=== PATIENT | male | born 1980 | race Caucasian/White ===

== ENCOUNTER 2024-03-15 01:15 | Inpatient (IN) ==
--- OUTSIDE RECORDS SUMMARY | 2024-03-15 01:20 | External Medical Summary | Summary of Care ---
Author Name Unknown Organization [facility] Address [address] [address] Phone [phone] Care Team Providers Care Corporate Travel Counselor Name Role Phone Siva Anna MD Primary Care Provider [phone] Encounter Details Date Type Department Care Team (Late st Contact Info) Description 10/14/2023 Result Scan Unspecified Department <No scans attached> Allergies Active Allergy Reactions Criticality Noted Date Comments Amoxicillin Hives 09/21/2010 documented as of this encounter (statuses as of 10/17/2023) Medications Medication Sig Dispensed Refills Start Date End Date Status predniSONE (DELTASONE) 10 MG Tablet Take 5 tabs for 2 days, 4 tabs for 2 days, 3 tabs for 2 days, 2 tabs for 2 days 1 tab for 2 days 30 Tab 07/25/2019 Active Additional Information Patient not taking.Reported on 01/15/2023 Omeprazole 20 MG Oral Capsule Delayed Release (PriLOSEC)Indicatio ns:Gastroesophageal reflux disease with esophagitis without hemorrhage Take 1 Cap by mouth daily. 90 Cap 1 11/08/2020 Active Additional Information Patient not taking.Reported on 01/15/2023 buPROPion HCl ER (XL) 150 MG Oral Tablet Extended Release 24 Hour (Wellbutrin XL) Take by mouth 1 Tablet in the morning. 30 Tablet 5 08/24/2021 Active Additional Information Patient not taking.Reported on 01/15/2023 Allopurinol 100 MG Oral Tablet (Zyloprim) Take 1 Tablet by mouth in the morning. 30 Tablet 5 01/15/2023 Active documented as of this encounter (statuses as of 10/17/2023) Active Problems Problem Noted Date Diagnosed Date Gout 09/29/2013 Overview: uric acid 8.3 Overweight (BMI 25.0-29.9) 11/15/2012 Major depressive disorder 10/03/2010 Overview: ICD-10 update of inactive term Tobacco use disorder 04/23/2009 documented as of this encounter (statuses as of 10/17/2023) Immunizations Name Administration Dates Next Due PPD 10/25/2021,07/09/2018 TDAP (age 10 and older)(Boostrix) 07/18/2018 TDAP, Age 7 and older, IM (Adacel) 08/12/2007 documented as of this encounter Social History Tobacco Use Types Packs/Day Years Used Date Smoking Tobacco: Never Smokeless Tobacco: Current Chew Comments:chews occ Alcohol Use Standard Drinks/Week Comments No 0 (1 standard drink = 0.6 oz pur e alcohol) PHQ-2 Answer Date Recorded PHQ-2 Score 5 07/25/2019 Utilities Answer Date Recorded Do you have trouble paying y our heating, water, or electric bill? (Adult - for ages 18 years and over) Not on file 08/07/2023 Is your family able to pay t he heat, water, or electric bill? (Household - for ages 0-17 years) Not on file 08/07/2023 Does your family have access to good internet? (Household - for ages 0-17 years) Not on file 08/07/2023 Social Connections Answer Date Recorded How often do you feel lonely or isolated from those around you? (Adult - for ages 18 years and over) Not on file 08/07/2023 Sex and Gender Information Value Date Recorded Sex Assigned at Not on file Gender Identity Not on file Sexual Orientation Not on file Job Start Date Occupation Industry Not on file Not on file Not on file documented as of this encounter Plan of Treatment Health Maintenance Due Date Last Done Comments HIV Screening 1996 Hepatitis C Screening 11/15/1999 Hepatitis B Vaccine (1 of 3 - 19+ 3-dose series) 2000 Depression Monitoring 07/24/2020 07/25/2019 COVID-19 Vaccine ( - 2022-24 season) 2022 Influenza Vaccine (FLU shot) (#1) 2023 Diabetes Screening 01/15/2026 01/15/2023, 0 09/22/2020, 07/25/2019, Additional history exists Lipid Panel 01/16/2028 01/15/2023 DTap/Tdap Vaccines (3 - Td or Tdap) 07/18/2028 07/18/2018, 08/12/2007 HPV (Gardasil) Vaccine Aged Out No lo nger eligible based on patient's age to complete this topic MENINGOCOCCAL (MENACTRA/MENVEO) Aged Out No longer eligible based on patient's age to complete this topic Pneumococcal Vaccine: Pediatrics (0 to 5 Years) and At-Risk Patients (6 to 64 Years) Aged Out No longer eligible based on patient's age to complete this topic documented as of this encounter Medical Devices Not on filedocumented as of this encounter Procedures Procedure Name Priority Date/Time Associated Diagnosis Comments OUTSIDE LAB RESULTS 10/14/2023 documented in this encounter Results * OUTSIDE LAB RESULTS (10/14/2023) 10/14/2023 No Physician Data Unknown LABORATORY documented in this encounter Care Teams Corporate Travel Counselor Relationship Specialty Start Date End Date Siva Anna MD PCP - General Family Medicine 10/24/13 documented as of this encounter
[2024-03-15 02:10] LABS: Base Excess VBG 6.4 mEq/L; HCO3 VBG 31 mmol/L; Oxygen Saturation VBG 79.1 %; PCO2 VBG 41 mmHg (38-50); PO2 VBG 47 mmHg; pH VBG 7.48 (7.36-7.41)
[2024-03-15] MEDS: ALBUT/IPRATROP 3MG/0.5MG NEB 3 ML VIAL NEB STA (02:13)
[2024-03-15 02:17] LABS: Basophils # (auto) 0.07 K/uL (0.00-0.20); Basophils % (auto) 0.3 %; Eosinophils # (auto) 0.02 K/uL (0.00-0.50); Eosinophils % (auto) 0.1 %; Hematocrit (blood only) 40.9 % (42.0-52.0); Hemoglobin 14.7 g/dl (14.0-18.0); Immature Granulocytes # (auto) 0.42 K/uL (0.01-0.20); Lymphocytes # (auto) 1.18 K/uL (1.20-3.40); Lymphocytes % (auto) 5.5 %; Mean Corpuscular Hemoglobin 28.8 pg (25.0-34.0); Mean Corpuscular Hgb Conc 35.9 g/dL (32.0-36.0); Mean Corpuscular Volume 80.2 fL (80.0-100.0); Mean Platelet Volume 9.3 fL (9.4-12.4); Monocytes # (auto) 2.58 K/uL (0.11-0.59); Neutrophils # (auto) 17.26 K/uL (1.40-6.50); Neutrophils % (auto) 80.1 %; Platelet Count 269 K/uL (130-400); RDW Coefficient of Variation 12.6 % (11.5-14.5); RDW Standard Deviation 36.4 fL (36.4-46.3); White Blood Count 21.53 K/ul (4.8-10.8)
[2024-03-15 02:35] LABS: Albumin Globulin Ratio 0.9 (0.9-2); Albumin Level 3.5 gm/dl (3.4-5.0); BUN Creatinine Ratio 15.8 (10-20); Bilirubin,Total 1.1 mg/dl (0.2-1.0); Creatinine Clr Calc Pharmacy 145.3 ml/min; Globulin 3.8 gm/dl (2.5-4.0); Potassium 3.1 mmol/L (3.5-5.1); Total Protein 7.3 gm/dl (6.0-8.3)
[2024-03-15 03:02] LABS: Adenovirus PCR Not Detected (NotDetected); Bordetella parapertussis PCR Not Detected (NotDetected); Bordetella pertussis PCR Not Detected (NotDetected); Chlamydia pneumoniae PCR Not Detected (NotDetected); Coronavirus 229E PCR Not Detected (NotDetected); Coronavirus CoV-2 (COVID19)PCR Not Detected (NotDetected); Coronavirus HKU1 PCR Not Detected (NotDetected); Coronavirus NL63 PCR Not Detected (NotDetected); Coronavirus OC43PCR Not Detected (NotDetected); Human Metapneumovirus PCR Not Detected (NotDetected); Influenza A PCR Not Detected (NotDetected); Influenza B PCR Not Detected (NotDetected); Mycoplasma pneumoniae PCR Not Detected (NotDetected); Parainfluenza Virus 1 PCR Not Detected (NotDetected); Parainfluenza Virus 2 PCR Not Detected (NotDetected); Parainfluenza Virus 3 PCR Not Detected (NotDetected); Parainfluenza Virus 4 PCR Not Detected (NotDetected); Respiratory Syncytial VirusPCR Not Detected (NotDetected); Rhinovirus/Enterovirus PCR Not Detected (NotDetected)
[2024-03-15] MEDS: OPTIRAY 320 125ml IV ONE (03:26)
[2024-03-15] MEDS ORDERED: VANCOMYCIN CONSULT ACTIVE PRN (03:28)
--- NOTE | 2024-03-15 03:39 | XRay Report ---
EXAM: XR chest 2V PA/lateral CLINICAL HISTORY: PNA. TECHNIQUE: X-ray images of the chest were obtained in posteroanterior (PA) and lateral projections. COMPARISON: 03/12/2024 CT. FINDINGS: Pulmonary Parenchyma: Homogenous opacity is noted at the right lung zones and RT hemithorax rises to the right axilla with obliteration of ipsilateral costophrenic recess denoting right lung consolidation with marked pleural effusion. Haziness of the right upper and left lower lung zone. No evidence of left pleural effusion or pleural thickening. Heart and Mediastinum: Heart size and shape are normal. No mediastinal widening or masses. No hilar or mediastinal lymphadenopathy. Bony Thorax: The bony thorax appears intact without fractures or deformities. Soft Tissues: Soft tissues overlying the chest wall are unremarkable. IMPRESSION: Homogenous opacity at the right lung zones and RT hemithorax rising to the right axilla with obliteration of ipsilateral costophrenic recess denoting right lung consolidation with marked pleural effusion. Progressive course compared to the last study. Electronically signed by Aniya Little 03-15-2024 03:39 AM
[2024-03-15 03:48] LABS: Appearance Urine Clear (Clear); Bacteria Urine Automated None Seen (None Seen); Bilirubin Urine Negative (Negative); Blood Urine Negative (Negative); Cast Urine Automated 0-2 /lpf (0-2); Color Urine Yellow; Epithelial Cell Urine Auto 0-2 /hpf (0-2); Glucose Urine UA Negative (Negative); Ketones Urine Negative (Negative); Leukocyte Esterase Urine Negative (Negative); Nitrite Urine Negative (Negative); Protein Urine 1+ (Negative); RBC Urine Automated 0-2 /hpf (0-2); Specific Gravity Urine 1.006 (1.000-1.030); Urobilinogen Urine Negative (Negative); WBC Urine Automated 0-5 /hpf (0-5)
[2024-03-15] MEDS: ACETAMINOPHEN 1,000 MG/100 ML VIAL IV STA (03:51)
[2024-03-15] MEDS: POTASSIUM CHLORIDE / WTR 10 MEQ/100 ML PLCT IV ONE (03:54)
[2024-03-15 04:03] LABS: Magnesium 2.2 mg/dl (1.7-2.4)
[2024-03-15] MEDS: VANCOMYCIN HCL 2,000 MG in SODIUM CHLORIDE 0.9% 500 ML IV ONE (04:35)
--- NOTE | 2024-03-15 04:37 | History & Physical Report ---
Date of Service March 15, 2024 Assessment & Plan (1) Severe sepsis: Plan: Severe sepsis SIRS plus hypoxemia secondary to complicated bronchopneumonia Failed outpatient treatment Hyponatremia secondary to illness Hyperglycemia rule out DM Mood disorder, stable off maintenance medications PCU Supplemental O2 CS, Cefepime, Doxycycline Follow CT chest study result Pulmonology consult re: complicated pneumonia N.p.o. in anticipation of procedure Hyponatremia workup, careful correction of sodium Check hemoglobin A1c DVT prophylaxis per Lovenox subcu Full code Patient requesting updates providers. Ms. Alida Quarles, contact #[phone]. Total critical care time was 45 minutes. Text document was generated using MePlease voice recognition software. It may contain grammatical or spelling errors. Kindly contact undersigned for clarification of any documentation item in question. History of Present Illness Chief Complaint: Worsening cough, SOB Primary Care Provider: Munira Castro PA-C History obtained from patient, family, and records. Medical history significant for gout, mood disorder. 6 days ago, patient started feeling sick. Generalized weakness associated with dry cough symptoms which later progressed to junky yellow expectorate. Achy right-sided chest pain. Poor appetite. Not sure about sick contacts. Denies aspiration. Denies fluid retention. Patient consulted [facility] ER 4 days ago due to worsening symptoms. Patient prescribed Levaquin for right lower lobe pneumonia. Patient returned to [facility] ER the following day due to worsening symptoms. CT angio chest negative for PE. Bronchopneumonia with right moderate parapneumonic effusion and reactive mediastinal lymphadenopathy on imaging. Patient discharged home and instructed to complete Levaquin Rx. Patient not better despite compliance with antibiotic Rx. Cough productive of yellow-brown sputum. Patient brought to ER by for evaluation. O2 sats 88 on room air. Vancomycin and doxycycline administered at the ER. 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 Allergies Allergy/AdvReac Type Severity Reaction Status Date / Time amoxicillin Allergy Unknown RASH HIVES Unverified 09/12/13 06:10 Home Medications Medication Instructions Recorded Confirmed Type levofloxacin 750 mg tablet 750 mg PO .EVERY 24 HOURS 03/15/24 03/15/24 History Past Med/Surg History Problem List (Updated 03/15/24 @ 07:13 by Dyllan Driscoll MD) Severe sepsis Cervical stenosis of spinal canal (Acute 09/12/13) Medical History Family history of non-Hodgkin's lymphoma Surgical History No significant past surgical history Social History (Updated 03/15/24 @ 04:52 by Nate Rodriguez PA-C) Smoking Status: Never smoker Tobacco Type: Smokeless Tobacco (Dip or Chew) Preferred Language: Maltese Feels Safe at Home: Yes Review of Systems Review of Systems: As per HPI, all other systems reviewed and negative Physical Exam Physical Exam: GENERAL: Comfortable, minimal respiratory distress SKIN: Normal color, warm HEENT: [place] palpebral conjunctivae, no ptosis, dry buccal mucosa, nasal cannula in place NECK : Supple, no tenderness CHEST : Decreased breath sounds, occasional expiratory wheezes, no tenderness HEART : Tachycardic, no obvious murmurs ABDOMEN: Some distention, nontender EXTREMITIES : No LE swelling/tenderness, no other conspicuous deformities noted NEUROLOGIC : Coherent, no facial asymmetry, no other gross focality Results & Data Results & Data Vital Signs (Past 12 Hours) Vital Signs Temp Pulse Pulse Resp BP BP Pulse Ox 03/15/24 03:30 120 H 26 H 125/104 H 96 03/15/24 01:59 114 H 94 03/15/24 01:48 95 03/15/24 01:28 116 H 03/15/24 01:19 36.9 C 120 H 27 H 135/85 88 L O2 Del Method O2 Flow Rate 03/15/24 03:30 Nasal Cannula 4 03/15/24 01:59 Nasal Cannula 4 03/15/24 01:48 Nasal Cannula 4 03/15/24 01:28 03/15/24 01:19 Room Air Laboratory Results Laboratory Results WBC 21.53 K/ul (4.8-10.8) H 03/15/24 01:54 RBC 5.10 M/uL (4.70-6.10) 03/15/24 01:54 Hgb 14.7 g/dl (14.0-18.0) 03/15/24 01:54 Hct 40.9 % (42.0-52.0) L 03/15/24 01:54 MCV 80.2 fL (80.0-100.0) 03/15/24 01:54 MCH 28.8 pg (25.0-34.0) 03/15/24 01:54 MCHC 35.9 g/dL (32.0-36.0) 03/15/24 01:54 RDW Std Deviation 36.4 fL (36.4-46.3) 03/15/24 01:54 RDW Coeff of [place] 12.6 % (11.5-14.5) 03/15/24 01:54 Plt Count 269 K/uL (130-400) 03/15/24 01:54 MPV 9.3 fL (9.4-12.4) L 03/15/24 01:54 Immature Gran % (Auto) 2.0 % 03/15/24 01:54 Neut % (Auto) 80.1 % 03/15/24 01:54 Lymph % (Auto) 5.5 % 03/15/24 01:54 [place] % (Auto) 12.0 % 03/15/24 01:54 Eos % (Auto) 0.1 % 03/15/24 01:54 Baso % (Auto) 0.3 % 03/15/24 01:54 Neut # (Auto) 17.26 K/uL (1.40-6.50) H 03/15/24 01:54 Lymph # (Auto) 1.18 K/uL (1.20-3.40) L 03/15/24 01:54 [place] # (Auto) 2.58 K/uL (0.11-0.59) H 03/15/24 01:54 Eos # (Auto) 0.02 K/uL (0.00-0.50) 03/15/24 01:54 Baso # (Auto) 0.07 K/uL (0.00-0.20) 03/15/24 01:54 Immature Gran # (Auto) 0.42 K/uL (0.01-0.20) H 03/15/24 01:54 VBG pH 7.48 (7.36-7.41) H 03/15/24 01:54 VBG pCO2 41 mmHg (38-50) 03/15/24 01:54 VBG pO2 47 mmHg 03/15/24 01:54 VBG HCO3 31 mmol/L 03/15/24 01:54 VBG O2 Saturation 79.1 % 03/15/24 01:54 VBG Base Excess 6.4 mEq/L 03/15/24 01:54 Sodium 128 mmol/L (136-145) L 03/15/24 01:54 Potassium 3.1 mmol/L (3.5-5.1) L 03/15/24 01:54 Chloride 90 mmol/L (98-107) L 03/15/24 01:54 Carbon Dioxide 27 mmol/L (21-32) 03/15/24 01:54 Anion Gap 11 (3-11) 03/15/24 01:54 BUN 12 mg/dl (6-23) 03/15/24 01:54 Creatinine 0.76 mg/dl (0.6-1.4) 03/15/24 01:54 Est Cr Clr Drug Dosing 145.3 ml/min 03/15/24 01:54 eGFR 115.09 03/15/24 01:54 BUN/Creatinine Ratio 15.8 (10-20) 03/15/24 01:54 Glucose 126 mg/dl (70-99(Fasting)) H 03/15/24 01:54 Lactate 1.3 mmol/L (0.4-2.0) 03/15/24 01:54 Calcium 9.0 mg/dl (8.6-10.3) 03/15/24 01:54 Magnesium 2.2 mg/dl (1.7-2.4) 03/15/24 01:54 Total Bilirubin 1.1 mg/dl (0.2-1.0) H 03/15/24 01:54 AST 29 U/L (13-39) 03/15/24 01:54 ALT 34 U/L (7-52) 03/15/24 01:54 Alkaline Phosphatase 105 U/L (34-104) H 03/15/24 01:54 Troponin I High Sens 50.0 pg/ml (0-20) H* 03/15/24 01:54 Total Protein 7.3 gm/dl (6.0-8.3) 03/15/24 01:54 Albumin 3.5 gm/dl (3.4-5.0) 03/15/24 01:54 Globulin 3.8 gm/dl (2.5-4.0) 03/15/24 01:54 Albumin/Globulin Ratio 0.9 (0.9-2) 03/15/24 01:54 Procalcitonin 3.34 ng/ml (0-0.5) H 03/15/24 01:54 Urine Color Yellow 03/15/24 03:20 Urine Appearance Clear (Clear) 03/15/24 03:20 Urine pH 6.0 (4.5-7.5) 03/15/24 03:20 Ur Specific [place] 1.006 (1.000-1.030) 03/15/24 03:20 Urine Protein 1+ (Negative) H 03/15/24 03:20 Urine Glucose (UA) Negative (Negative) 03/15/24 03:20 Urine Ketones Negative (Negative) 03/15/24 03:20 Urine Blood Negative (Negative) 03/15/24 03:20 Urine Nitrite Negative (Negative) 03/15/24 03:20 Urine Bilirubin Negative (Negative) 03/15/24 03:20 Urine Urobilinogen Negative (Negative) 03/15/24 03:20 Ur Leukocyte Esterase Negative (Negative) 03/15/24 03:20 Urine WBC (Auto) 0-5 /hpf (0-5) 03/15/24 03:20 Urine RBC (Auto) 0-2 /hpf (0-2) 03/15/24 03:20 U Hyaline Cast (Auto) 0-2 /lpf (0-2) 03/15/24 03:20 U Epithel Cells (Auto) 0-2 /hpf (0-2) 03/15/24 03:20 Urine Bacteria (Auto) None Seen (None Seen) 03/15/24 03:20 Adenovirus (PCR) Not Detected (NotDetected) 03/15/24 01:54 B. pertussis DNA (PCR) Not Detected (NotDetected) 03/15/24 01:54 B.parapertussis DNA PCR Not Detected (NotDetected) 03/15/24 01:54 C. pneumoniae DNA (PCR) Not Detected (NotDetected) 03/15/24 01:54 Coronavirus OC43 (PCR) Not Detected (NotDetected) 03/15/24 01:54 Coronavirus HKU1 (PCR) Not Detected (NotDetected) 03/15/24 01:54 Coronavirus 229E (PCR) Not Detected (NotDetected) 03/15/24 01:54 SARS-CoV-2 (PCR) Not Detected (NotDetected) 03/15/24 01:54 Coronavirus NL63 (PCR) Not Detected (NotDetected) 03/15/24 01:54 Human Metapneumovir PCR Not Detected (NotDetected) 03/15/24 01:54 Influenza Type A (PCR) Not Detected (NotDetected) 03/15/24 01:54 Influenza Type B (PCR) Not Detected (NotDetected) 03/15/24 01:54 M. pneumoniae (PCR) Not Detected (NotDetected) 03/15/24 01:54 Parainfluenza 1 (PCR) Not Detected (NotDetected) 03/15/24 01:54 Parainfluenza 2 (PCR) Not Detected (NotDetected) 03/15/24 01:54 Parainfluenza 3 (PCR) Not Detected (NotDetected) 03/15/24 01:54 Parainfluenza 4 (PCR) Not Detected (NotDetected) 03/15/24 01:54 RSV (PCR) Not Detected (NotDetected) 03/15/24 01:54 Entero/Rhino (PCR) Not Detected (NotDetected) 03/15/24 01:54 Impressions Chest X-Ray 03/15/24 01:30 EXAM: XR chest 2V PA/lateral CLINICAL HISTORY: PNA. TECHNIQUE: X-ray images of the chest were obtained in posteroanterior (PA) and lateral projections. COMPARISON: 03/12/2024 CT. FINDINGS: Pulmonary Parenchyma: Homogenous opacity is noted at the right lung zones and RT hemithorax rises to the right axilla with obliteration of ipsilateral costophrenic recess denoting right lung consolidation with marked pleural effusion. Haziness of the right upper and left lower lung zone. No evidence of left pleural effusion or pleural thickening. Heart and Mediastinum: Heart size and shape are normal. No mediastinal widening or masses. No hilar or mediastinal lymphadenopathy. Bony Thorax: The bony thorax appears intact without fractures or deformities. Soft Tissues: Soft tissues overlying the chest wall are unremarkable. IMPRESSION: Homogenous opacity at the right lung zones and RT hemithorax rising to the right axilla with obliteration of ipsilateral costophrenic recess denoting right lung consolidation with marked pleural effusion. Progressive course compared to the last study. Electronically signed by Aniya Little 03-15-2024 03:39 AM Diagnostic Findings EKG as per my interpretation :Rate 120, sinus tachycardia, normal axis, incomplete RBBB, T wave abnormalities inferior leads
--- NOTE | 2024-03-15 04:38 | CT Scan Report ---
EXAM: CT angio chest PE protocol CLINICAL HISTORY: Shortness of breath, abnormal cxr. TECHNIQUE: CT angiography of the chest was performed with contrast with the following protocol: axial images with, reconstructed coronal and sagittal images. 118 cc's optiray 320 was administered using automated injection techniques. Bolus tracking was employed to optimize arterial phase imaging. One of these 3D techniques was utilized: Maximum Intensity Pixel (MIP), 3D Reconstructed Images, Volume Rendered Images, Surface Shaded Rendering. One of the following dose reduction techniques was utilized for this exam: Automated exposure control, adjustment of the mA and/or kV according to patient size, and use of iterative reconstruction. DLP: 962.11 mGy-cm, CTDI: 44.9 mGy. COMPARISON: CT angio dated 03/12/2024. FINDINGS: Right and left main pulmonary arteries as well as segmental branches appear of normal caliber without evidence of any filling defect. No evidence of gross pulmonary arterial thrombosis was identified. Right moderate to marked encysted pleural effusion shows internal air loculi associated with pleural thickening. Underlying right lung segmental and subsegmental consolidation collapse. Associated mild contralateral mediastinal shift. Mild left pleural effusion with underlying left lung subsegmental relaxation atelectasis. Left lung atelectatic bands and tiny nodular densities. Multiple enlarged mediastinal and bilateral hilar lymph nodes, reaching about 3 x 1.2 cm at the subcarinal region. No evidence of cardiomegaly. Minimal pericardial effusion. There is no definite mass lesion in the chest wall. No fractures, lytic, or blastic lesions of the visualized bony structures. Soft tissues are unremarkable. Upper abdomen shows Fatty liver. IMPRESSION: 1. No evidence of acute pulmonary arterial thromboembolic disease. 2. Right moderate to marked encysted pleural effusion currently shows internal air loculi associated with pleural thickening. Underlying right lung segmental and subsegmental consolidation collapse. Progressed. 3. Mild left pleural effusion with underlying left lung subsegmental relaxation atelectasis. Newly developed. 4. Multiple enlarged mediastinal and bilateral hilar lymph nodes. Progressed. Electronically signed by Aniya Little 03-15-2024 04:37 AM
[2024-03-15] MEDS: POTASSIUM CHLORIDE CRTAB 20 MEQ TABCR PO STA (04:41)
[2024-03-15] MEDS: methylPREDNISolone 125 MG/2 ML VIAL IV STA (04:41)
--- NOTE | 2024-03-15 04:56 | Emergency Department Note ---
History of Present Illness General Chief complaint: Respiratory Problems Stated complaint: PNEUMONIA,WEAK,LOW O2 Time Seen by Provider: 03/15/24 01:21 History of Present Illness Maximum Pain Intensity: 3 This is a 43-year-old male presenting to the emergency department for evaluation of worsening pneumonia. Patient has been seen twice in the past week at [facility] with similar complaints. He states that he had 2 CAT scans and was started on Levaquin. Patient is on day 4 of the Levaquin, and despite this feels weak and with difficulty breathing. He will intermittently run a fever. He is usually healthy without chronic medical disease, does not take any medication on a regular basis. He will chew tobacco, but is not a smoker. 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 No recent travel history. He does have difficulty with deep breathing. There is mild chest pain. Discomfort is rated a 3/10. Home Medications Medication Instructions Recorded Confirmed Type levofloxacin 750 mg tablet 750 mg PO .EVERY 24 HOURS 03/15/24 03/15/24 History Allergies Allergy/AdvReac Type Severity Reaction Status Date / Time amoxicillin Allergy Unknown RASH HIVES Unverified 09/12/13 06:10 Past Med/Surg History Problem List (Updated 03/15/24 @ 21:21 by Nate Rodriguez PA-C) Hypokalemia (Acute) Hyponatremia (Acute) Hypoxemia (Acute) Pneumonia (Acute) Parapneumonic effusion (Acute) Severe sepsis (Acute) Cervical stenosis of spinal canal (Acute 09/12/13) Medical History Family history of non-Hodgkin's lymphoma Surgical History No significant past surgical history Social History (Updated 03/15/24 @ 04:52 by Nate Rodriguez PA-C) Smoking Status: Never smoker Tobacco Type: Smokeless Tobacco (Dip or Chew) Second Hand Exposure: No; Do You Dip or Chew Tobacco: Yes; Hx Alcohol Use: Yes Alcohol type: beer Hx Substance Use: No Preferred Language: Turkish Communication Ability: Effective Machine Biller Required: No Beliefs That Will Affect Care: None Current Living Situation: Spouse Feels Safe at Home: Yes Assistive Devices: Glasses Review of Systems A total of 10 systems reviewed and were otherwise negative Physical Exam Vital Signs Vital Signs - 24 hr 03/15/24 01:19 03/15/24 01:28 03/15/24 01:48 Temperature 36.9 C Temperature Source Temporal Artery Scan Pulse Rate 120 H 116 H Pulse Rate [Apical] Respiratory Rate 27 H Respiratory Effort / Characteristics Non-Labored Spontaneous Respiratory Depth Normal Respiratory Pattern Blood Pressure 135/85 Blood Pressure [Right Arm] Blood Pressure Mean 101 Blood Pressure Mean [Right Arm] Blood Pressure Position [Right Arm] Pulse Oximetry 88 L 95 Oxygen Delivery Method Room Air Nasal Cannula Oxygen Flow Rate 4 Sepsis Recent Fever Within 48 Hours No Sepsis New/Unexplained Change in Mental Status N/A Sepsis Action Taken by Nursing No Action Required 03/15/24 01:59 03/15/24 03:30 Temperature Temperature Source Pulse Rate 114 H Pulse Rate [Apical] 120 H Respiratory Rate 26 H Respiratory Effort / Characteristics Non-Labored Spontaneous Respiratory Depth Normal Respiratory Pattern Regular Blood Pressure Blood Pressure [Right Arm] 125/104 H Blood Pressure Mean Blood Pressure Mean [Right Arm] 111 Blood Pressure Position [Right Arm] Sitting Pulse Oximetry 94 96 Oxygen Delivery Method Nasal Cannula Nasal Cannula Oxygen Flow Rate 4 4 Sepsis Recent Fever Within 48 Hours Sepsis New/Unexplained Change in Mental Status Sepsis Action Taken by Nursing VITALS: Vitals are noted on the nurse's note and reviewed by myself. Vital signs with tachycardia and tachypnea. He is hypoxic at 87%. GENERAL: Well-developed, well-nourished, white male, who is ill-appearing on examination. He is with some work of breathing. This did resolve quickly with 4 L nasal cannula. HEAD: Normocephalic atraumatic. EARS: External ear normal. External auditory canals clear, tympanic membranes pearly ordaz without erythema or effusion bilaterally. EYES: Pupils equal round and reactive to light and accommodation. Conjunctivae without injection, sclerae without icterus. Extraocular movements intact. NOSE: Patent, turbinates without inflammation or discharge. MOUTH: Mucous membranes moist. Tonsils are not enlarged. Pharynx without erythema, blood, or exudate. Uvula midline. Airway patent. NECK: Supple without nuchal rigidity. No lymphadenopathy. No thyromegaly. Cervical spine is nontender. HEART: Tachycardic rate with regular rhythm LUNGS: Minimal breath sounds along the right side. Faint crackles noted in the basilar left lungs. ABDOMEN: Positive normal bowel sounds x 4. Soft, nontender, without masses or organomegaly. No guarding or rebound tenderness. MUSCULOSKELETAL: No muscle atrophy, erythema, or edema noted. Full range of motion in all extremities. Course Administered Medications Acetaminophen (Acetaminophen 500 Mg Tab) 500 mg PO Q6H PRN PRN Reason: fever/pain Stop: 04/14/24 05:52 Last Admin: 03/15/24 16:01 Dose: 500 mg Documented By: ELTON Enoxaparin Sodium (Enoxaparin Inj 40 Mg/0.4 Ml Syr) 40 mg SQ QAM RICKY Stop: 04/14/24 08:59 Last Admin: 03/15/24 10:36 Dose: Not Given Documented By: KAMLESH Hydrocodone Bit/Homatropine Methylb (Hydrocodone/Homatropine Syrup 5mg/1.5mg 5ml Udp) 5 ml PO Q4H PRN PRN Reason: Cough Stop: 03/29/24 09:24 Last Admin: 03/15/24 18:19 Dose: 5 ml Documented By: Admin: 03/15/24 11:26 Dose: 5 ml Documented By: KAMLESH Hydroxyzine HCl (Hydroxyzine Hcl 10 Mg Tab) 10 mg PO QID PRN PRN Reason: Anxiety Stop: 04/14/24 05:52 Last Admin: 03/15/24 07:05 Dose: 10 mg Documented By: Piperacillin Sod/Tazobactam Sod (Zosyn) 4.5 gm in 100 mls @ 25 mls/hr IV Q8H RICKY; Protocol Stop: 03/20/24 13:59 Last Infusion: 03/15/24 18:21 Dose: Infused Documented By: Admin: 03/15/24 14:21 Dose: 25 mls/hr Documented By: KAMLESH Alteplase, Recombinant 10 mg/ (Syringe) 60 mls @ 0.0006 mls/min IPL Q12H RICKY; Protocol Stop: 03/18/24 08:59 Last Admin: 03/15/24 21:01 Dose: 0.0006 mls/min Documented By: TOMY Co-signed By: WALT Admin: 03/15/24 10:17 Dose: 0.0006 mls/min Documented By: KAMLESH Co-signed By: ELTON Dornase Rashid 5 ml/ Syringe 30 mls @ 0.0006 mls/min IPL Q12H RICKY; Protocol Stop: 03/18/24 08:59 Last Admin: 03/15/24 11:30 Dose: 0.0006 mls/min Documented By: KAMLESH Ketorolac Tromethamine (Ketorolac Tromethamine 15 Mg/Ml Vial) 15 mg IV Q6H PRN PRN Reason: Pain Stop: 03/17/24 08:06 Last Admin: 03/15/24 11:25 Dose: 15 mg Documented By: KAMLESH Discontinued Medications Albuterol (Albut/Ipratrop 3mg/0.5mg Neb 3 Ml Vial) 3 ml NEB NOW STA; Protocol Stop: 03/15/24 01:34 Last Admin: 03/15/24 02:13 Dose: 3 ml Documented By: Acetaminophen (Ofirmev) 1,000 mg in 100 mls @ 400 mls/hr IV NOW STA Stop: 03/15/24 03:42 Last Infusion: 03/15/24 04:24 Dose: Infused Documented By: Admin: 03/15/24 03:51 Dose: 400 mls/hr Documented By: Vancomycin HCl 2,000 mg/ (Sodium Chloride) 540 mls @ 200 mls/hr IV NOW ONE Stop: 03/15/24 06:09 Last Infusion: 03/15/24 08:31 Dose: Infused Documented By: Admin: 03/15/24 04:35 Dose: 200 mls/hr Documented By: JAE Potassium Chloride (K Jesse / Wtr) 10 meq in 100 mls @ 100 mls/hr IV ONE ONE Stop: 03/15/24 04:44 Last Infusion: 03/15/24 05:53 Dose: Infused Documented By: Admin: 03/15/24 03:54 Dose: 100 mls/hr Documented By: Doxycycline Hyclate 100 mg/ (Dextrose) 100 mls @ 50 mls/hr IV NOW STA Stop: 03/15/24 05:45 Last Infusion: 03/15/24 08:31 Dose: Infused Documented By: Admin: 03/15/24 05:57 Dose: 50 mls/hr Documented By: Potassium Chloride/Sodium Chloride (Normal Saline W/20 Meq Kcl) 20 meq in 1,000 mls @ 100 mls/hr IV .Q10H ONE Stop: 03/15/24 14:22 Last Infusion: 03/15/24 16:26 Dose: Infused Documented By: Admin: 03/15/24 06:04 Dose: 100 mls/hr Documented By: Cefepime HCl (Maxipime 2000mg) 2,000 mg in 20 mls @ 5 mls/min IV NOW STA; Protocol Stop: 03/15/24 05:14 Last Admin: 03/15/24 05:56 Dose: 5 mls/min Documented By: Piperacillin Sod/Tazobactam Sod (Zosyn) 4.5 gm in 100 mls @ 200 mls/hr IV ONE ONE; Protocol Stop: 03/15/24 09:14 Last Infusion: 03/15/24 12:27 Dose: Infused Documented By: Admin: 03/15/24 10:53 Dose: 200 mls/hr Documented By: KAMLESH Ioversol (Optiray 320 125ml) 118 ml IV ONCE ONE Stop: 03/15/24 03:27 Last Admin: 03/15/24 03:26 Dose: 118 ml Documented By: LIAM Ipratropium [place] (Ipratropium [place] Neb Soln 0.02% 0.5mg/2.5ml Vial) 0.5 mg [facility]H [facility] Stop: 04/14/24 06:59 Last Admin: 03/15/24 12:17 Dose: Not Given Documented By: Admin: 03/15/24 07:23 Dose: Not Given Documented By: PATI Levalbuterol HCl (Levalbuterol 1.25 Mg/3 Ml Neb) 1.25 mg NEB QIDR [facility] Stop: 04/14/24 06:59 Last Admin: 03/15/24 12:17 Dose: Not Given Documented By: Admin: 03/15/24 07:23 Dose: Not Given Documented By: PATI Methylprednisolone (Methylprednisolone 125 Mg/2 Ml Vial) 40 mg IV NOW STA Stop: 03/15/24 04:34 Last Admin: 03/15/24 04:41 Dose: 40 mg Documented By: JAE Potassium Chloride (Potassium Chloride Crtab 20 Meq Tabcr) 40 meq PO NOW STA Stop: 03/15/24 04:25 Last Admin: 03/15/24 04:41 Dose: 40 meq Documented By: JAE Potassium Chloride (Potassium Chloride Crtab 20 Meq Tabcr) 40 meq PO ONE ONE Stop: 03/15/24 06:31 Last Admin: 03/15/24 06:41 Dose: 40 meq Documented By: Critical Care Time I have personally spent greater than 30 minutes of critical care time in the direct management of this patient. This includes bedside care, interpretation of diagnostic studies, and testing, discussion with consultants, patient, and family members, and other required patient management activities. This 30 minutes is in excess of all separately billable procedures. Medical Decision Making Differential Diagnosis Differential diagnosis includes, but is not limited to: Myocardial infarction, dysrhythmia, pericarditis, pneumothorax, aortic aneurysm/dissection, DVT/PE, anxiety, GERD, PUD, electrolyte imbalance, thyroid disorder, pneumonia, bronchitis, pancreatitis, and others Laboratory Data 03/15/24 01:54 03/15/24 08:27 Lab Results 03/15/24 03/15/24 Range/Units 01:54 03:20 WBC 21.53 H (4.8-10.8) K/ul RBC 5.10 (4.70-6.10) M/uL Hgb 14.7 (14.0-18.0) g/dl Hct 40.9 L (42.0-52.0) % MCV 80.2 (80.0-100.0) fL MCH 28.8 (25.0-34.0) pg MCHC 35.9 (32.0-36.0) g/dL RDW Std Deviation 36.4 (36.4-46.3) fL RDW Coeff of [place] 12.6 (11.5-14.5) % Plt Count 269 (130-400) K/uL MPV 9.3 L (9.4-12.4) fL Immature Gran % (Auto) 2.0 % Neut % (Auto) 80.1 % Lymph % (Auto) 5.5 % [place] % (Auto) 12.0 % Eos % (Auto) 0.1 % Baso % (Auto) 0.3 % Neut # (Auto) 17.26 H (1.40-6.50) K/uL Lymph # (Auto) 1.18 L (1.20-3.40) K/uL [place] # (Auto) 2.58 H (0.11-0.59) K/uL Eos # (Auto) 0.02 (0.00-0.50) K/uL Baso # (Auto) 0.07 (0.00-0.20) K/uL Immature Gran # (Auto) 0.42 H (0.01-0.20) K/uL PT 11.8 (9.0-12.0) Seconds INR 1.1 (0.9-1.1) VBG pH 7.48 H (7.36-7.41) VBG pCO2 41 (38-50) mmHg VBG pO2 47 mmHg VBG HCO3 31 mmol/L VBG O2 Saturation 79.1 % VBG Base Excess 6.4 mEq/L Sodium 128 L (136-145) mmol/L Potassium 3.1 L (3.5-5.1) mmol/L Chloride 90 L (98-107) mmol/L Carbon Dioxide 27 (21-32) mmol/L Anion Gap 11 (3-11) BUN 12 (6-23) mg/dl Creatinine 0.76 (0.6-1.4) mg/dl Est Cr Clr Drug Dosing 145.3 ml/min eGFR 115.09 BUN/Creatinine Ratio 15.8 (10-20) Glucose 126 H (70-99(Fasting)) mg/dl Estimat Average Glucose 105 mg/dl Hemoglobin A1c 5.3 (4.5-5.6) % Osmolality 270 L (280-300) mOsm/kg Lactate 1.3 (0.4-2.0) mmol/L Calcium 9.0 (8.6-10.3) mg/dl Magnesium 2.2 (1.7-2.4) mg/dl Total Bilirubin 1.1 H (0.2-1.0) mg/dl AST 29 (13-39) U/L ALT 34 (7-52) U/L Alkaline Phosphatase 105 H (34-104) U/L Troponin I High Sens 50.0 H* (0-20) pg/ml Total Protein 7.3 (6.0-8.3) gm/dl Albumin 3.5 (3.4-5.0) gm/dl Globulin 3.8 (2.5-4.0) gm/dl Albumin/Globulin Ratio 0.9 (0.9-2) Procalcitonin 3.34 H (0-0.5) ng/ml TSH 3.231 (0.300-4.500) uIu/ml Urine Color Yellow Urine Appearance Clear (Clear) Urine pH 6.0 (4.5-7.5) Ur Specific [place] 1.006 (1.000-1.030) Urine Protein 1+ H (Negative) Urine Glucose (UA) Negative (Negative) Urine Ketones Negative (Negative) Urine Blood Negative (Negative) Urine Nitrite Negative (Negative) Urine Bilirubin Negative (Negative) Urine Urobilinogen Negative (Negative) Ur Leukocyte Esterase Negative (Negative) Urine WBC (Auto) 0-5 (0-5) /hpf Urine RBC (Auto) 0-2 (0-2) /hpf U Hyaline Cast (Auto) 0-2 (0-2) /lpf U Epithel Cells (Auto) 0-2 (0-2) /hpf Urine Bacteria (Auto) None Seen (None Seen) Urine Osmolality 180 L (500-800) mOsm/kg Ur Random Sodium < 10 mmol/L Adenovirus (PCR) Not Detected (NotDetected) B. pertussis DNA (PCR) Not Detected (NotDetected) B.parapertussis DNA PCR Not Detected (NotDetected) C. pneumoniae DNA (PCR) Not Detected (NotDetected) Coronavirus OC43 (PCR) Not Detected (NotDetected) Coronavirus HKU1 (PCR) Not Detected (NotDetected) Coronavirus 229E (PCR) Not Detected (NotDetected) SARS-CoV-2 (PCR) Not Detected (NotDetected) Coronavirus NL63 (PCR) Not Detected (NotDetected) Human Metapneumovir PCR Not Detected (NotDetected) Influenza Type A (PCR) Not Detected (NotDetected) Influenza Type B (PCR) Not Detected (NotDetected) M. pneumoniae (PCR) Not Detected (NotDetected) Parainfluenza 1 (PCR) Not Detected (NotDetected) Parainfluenza 2 (PCR) Not Detected (NotDetected) Parainfluenza 3 (PCR) Not Detected (NotDetected) Parainfluenza 4 (PCR) Not Detected (NotDetected) RSV (PCR) Not Detected (NotDetected) Entero/Rhino (PCR) Not Detected (NotDetected) Imaging Data Radiologist's Impression: Chest X-Ray 03/15/24 01:30 EXAM: XR chest 2V PA/lateral CLINICAL HISTORY: PNA. TECHNIQUE: X-ray images of the chest were obtained in posteroanterior (PA) and lateral projections. COMPARISON: 03/12/2024 CT. FINDINGS: Pulmonary Parenchyma: Homogenous opacity is noted at the right lung zones and RT hemithorax rises to the right axilla with obliteration of ipsilateral costophrenic recess denoting right lung consolidation with marked pleural effusion. Haziness of the right upper and left lower lung zone. No evidence of left pleural effusion or pleural thickening. Heart and Mediastinum: Heart size and shape are normal. No mediastinal widening or masses. No hilar or mediastinal lymphadenopathy. Bony Thorax: The bony thorax appears intact without fractures or deformities. Soft Tissues: Soft tissues overlying the chest wall are unremarkable. IMPRESSION: Homogenous opacity at the right lung zones and RT hemithorax rising to the right axilla with obliteration of ipsilateral costophrenic recess denoting right lung consolidation with marked pleural effusion. Progressive course compared to the last study. Electronically signed by Aniya Little 03-15-2024 03:39 AM Chest CTA 03/15/24 02:09 EXAM: CT angio chest PE protocol CLINICAL HISTORY: Shortness of breath, abnormal cxr. TECHNIQUE: CT angiography of the chest was performed with contrast with the following protocol: axial images with, reconstructed coronal and sagittal images. 118 cc's optiray 320 was administered using automated injection techniques. Bolus tracking was employed to optimize arterial phase imaging. One of these 3D techniques was utilized: Maximum Intensity Pixel (MIP), 3D Reconstructed Images, Volume Rendered Images, Surface Shaded Rendering. One of the following dose reduction techniques was utilized for this exam: Automated exposure control, adjustment of the mA and/or kV according to patient size, and use of iterative reconstruction. DLP: 962.11 mGy-cm, CTDI: 44.9 mGy. COMPARISON: CT angio dated 03/12/2024. FINDINGS: Right and left main pulmonary arteries as well as segmental branches appear of normal caliber without evidence of any filling defect. No evidence of gross pulmonary arterial thrombosis was identified. Right moderate to marked encysted pleural effusion shows internal air loculi associated with pleural thickening. Underlying right lung segmental and subsegmental consolidation collapse. Associated mild contralateral mediastinal shift. Mild left pleural effusion with underlying left lung subsegmental relaxation atelectasis. Left lung atelectatic bands and tiny nodular densities. Multiple enlarged mediastinal and bilateral hilar lymph nodes, reaching about 3 x 1.2 cm at the subcarinal region. No evidence of cardiomegaly. Minimal pericardial effusion. There is no definite mass lesion in the chest wall. No fractures, lytic, or blastic lesions of the visualized bony structures. Soft tissues are unremarkable. Upper abdomen shows Fatty liver. IMPRESSION: 1. No evidence of acute pulmonary arterial thromboembolic disease. 2. Right moderate to marked encysted pleural effusion currently shows internal air loculi associated with pleural thickening. Underlying right lung segmental and subsegmental consolidation collapse. Progressed. 3. Mild left pleural effusion with underlying left lung subsegmental relaxation atelectasis. Newly developed. 4. Multiple enlarged mediastinal and bilateral hilar lymph nodes. Progressed. Electronically signed by Aniya Little 03-15-2024 04:37 AM MDM Narrative Physical exam and history were performed. Nursing notes, EMR, and Medication List were personally reviewed. No social concerns were identified as barriers to patients care. Patient appears to have known pneumonia diagnosed at another ER. Patient appears very ill on arrival to this department and was seen immediately on arrival in room C10. 2 IVs were established. Blood cultures and lactic were gathered. Chest x-ray was performed. Blood work was obtained. Case was discussed with my attending, Dr. Garrison, who remained involved in care decision making. Patient's blood work is as above and was reviewed. He does have an elevated white blood cell count of 21,000. He does not have significant anemia. VBG shows that his pH is slightly elevated at 7.48, however his pCO2 is normal. He is hyponatremic at 128 and hypokalemic at 3.1. He was given potassium through his IV. BUN and creatinine are normal. Glucose 126. Lactic is negative with blood culture pending. Sputum culture was also gathered. Troponin is elevated at 50. EKG remains nonischemic. Procalcitonin is elevated at 3.3. Urine without evidence of infection. BioFire negative. Chest x-ray was performed and reviewed by myself, and the patient has a large opacity on the right side. Because of this the patient was sent to CT scan. CT scan was performed and reviewed by myself and radiology. CT scan does show a large loculated pleural effusion. After discussion with my attending, patient was started on IV vancomycin and IV doxycycline. He was given IV Tylenol here in the ER. Overall the patient does not appear well for discharge home. Case was discussed with the on-call hospitalist team, who agreed to evaluate the patient here in the ER. Please see their dictation for further patient course, plan, and disposition. The chart was completed utilizing [employer] Speech Voice Recognition Software. Grammatical errors, random word insertions, pronoun errors, and incomplete sentences are an occasional consequence of this system due to software limitations, ambient noise, and hardware issues. Any formal questions or concerns about the content, text, or information contained within the body of this dictation should be directly addressed to the provider for clarification. Impression & Plan Pneumonia, Parapneumonic effusion, Severe sepsis, Hypoxemia, Hyponatremia, Hypokalemia Discharge Plan Visit Data Chief Complaint: Respiratory Problems Stated Complaint: PNEUMONIA,WEAK,LOW O2 ED Provider: Jazmin Garrison ED Midlevel Provider: Nate Rodriguez Discharge Problem: Pneumonia, Parapneumonic effusion, Severe sepsis, Hypoxemia, Hyponatremia, Hypokalemia Patient Disposition: Admitted As Inpatient Discharge Instructions Interventions: ED Discharge Assessment Last Done: 03/15/24 08:56
[2024-03-15 05:04] LABS: Thyroid Stimulating Hormone 3.231 uIu/ml (0.300-4.500)
[2024-03-15] MEDS ORDERED: PROMETHAZINE 6.25 MG/50.25 ML BAG IV PRN (05:53)
[2024-03-15] MEDS: CEFEPIME 2000MG 2,000 MG/20 ML SYR IV STA (05:56)
[2024-03-15] MEDS: DOXYCYCLINE HYCLATE 100 MG in DEXTROSE 5% MINI-B 100 ML IV STA (05:57)
[2024-03-15] MEDS: NSS + 20MEQ KCL 20 MEQ/1,000 ML BAG IV ONE (06:04)
[2024-03-15] MEDS: POTASSIUM CHLORIDE CRTAB 20 MEQ TABCR PO ONE (06:41)
[2024-03-15] MEDS: hydrOXYzine HCl 10 MG TAB PO PRN (07:05)
[2024-03-15] MEDS: IPRATROPIUM BROMIDE NEB SOLN 0.02% 0.5MG/2.5ML VIAL INH SCH (07:23)
[2024-03-15] MEDS: LEVALBUTEROL 1.25 MG/3 ML NEB NEB SCH (07:23)
[2024-03-15 07:26] LABS: Estimated Average Glucose 105 mg/dl; Hemoglobin A1C 5.3 % (4.5-5.6)
--- NOTE | 2024-03-15 08:03 | Pulmonary Consultation ---
Date of Consultation March 15, 2024 Assessment & Plan (1) Parapneumonic effusion: (2) Pneumonia: (3) Hypoxemia: (4) Hyponatremia: (5) Hypokalemia: Plan Impression: 43-year-old previously healthy male admitted with pneumonia and parapneumonic effusion on the right. Recommendations: 1. Images were reviewed. Discussed with patient. Recommend urgent drainage. We discussed referral for surgical decortication and washout however the patient would like to remain local if possible. Will proceed with pigtail catheter placement and initiate mist 2 protocol. Fluid will be sent for LDH, glucose, pH, cell count differential, Gram stain and culture, and cytology. Daily chest x-ray and follow chest tube output. If he fails, may need to consider thoracic surgery involvement. Anticipate 3 to 4 days hospitalization 2. Will need to cover anaerobes. Discontinue cefepime and doxycycline. Given his remote history of rash associated with penicillins I think he can be rechallenged. Will give Zosyn as he is in a monitored setting. This can likely be de-escalated to Unasyn or Augmentin depending on culture data. Anticipate 10 to 14 days of therapy. 3. Electrolyte replacement per primary admitting service. The above recommendations and plan were extensively discussed with the patient at the bedside. Questions were answered to the best my ability. He expressed understanding and is in agreement with the plan as outlined History of Present Illness History of Present Illness Asked by hospitalist to assist in evaluation management of this patient with parapneumonic effusion/empyema. History is obtained from discussion with the patient as well as review of electronic medical record. 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 He has been seen in the [facility] emergency department on several occasions over the last week with fevers, chills, and sweats. He was apparently prescribed levofloxacin. We do not have imaging available to review but he was told he had pneumonia. He failed to improve after several visits to their ER and this prompted visit to our ER today where chest x-ray demonstrated opacification of two thirds of the right hemithorax. A CT scan was performed which revealed gas within the pleural space as well as a loculated probable parapneumonic effusion with some shift. He received antibiotics in the form of vancomycin, dox ycycline, and cefepime and was admitted to the hospital service. Pulmonary was consulted for additional management. The patient reports fevers, chills, and sweats. He has not had prior pneumonia. He reports that he had amoxicillin as a child which resulted in a rash but he is unclear on the details. He is unclear if he has had penicillins after that. He has no pets at home. No travel history. No other pertinent occupational or exposure history. Allergies Allergy/AdvReac Type Severity Reaction Status Date / Time amoxicillin Allergy Unknown RASH HIVES Unverified 09/12/13 06:10 Home Medications Medication Instructions Recorded Confirmed Type levofloxacin 750 mg tablet 750 mg PO .EVERY 24 HOURS 03/15/24 03/15/24 History Patient History Medical History Family history of non-Hodgkin's lymphoma Surgical History No significant past surgical history Social History (Updated 03/15/24 @ 04:52 by Nate Rodriguez PA-C) Smoking Status: Never smoker Tobacco Type: Smokeless Tobacco (Dip or Chew) Preferred Language: Uzbek Feels Safe at Home: Yes Review of Systems Review of Systems: Please refer to admission H&P. No additions or deletions Physical Exam Constitutional: + ill appearing Neck: trachea midline, no thyromegaly Respiratory: no respiratory distress, no labored breathing, no cough and not tachypneic Auscultation: + diminished lung sounds Diminished breath sounds on the right skilled nursing up with dullness to percussion. Cardiovascular: RRR, no murmur, no edema Gastrointestinal (Abdomen): normal bowel sounds, soft, nontender, no hepatosplenomegaly Musculoskeletal: Extremities: extremities normal to inspection Skin: no rashes, warm and dry Neurologic: Nonfocal exam Lymphatic: no cervical lymphadenopathy Results & Data Results & Data Vital Signs (Past 12 Hours) Vital Signs Temp Pulse Pulse Resp BP BP Pulse Ox 03/15/24 07:36 94 H 22 136/88 94 03/15/24 07:09 36.8 C 03/15/24 07:06 96 H 19 94 03/15/24 06:45 96 H 20 127/92 94 03/15/24 06:30 124/96 03/15/24 06:30 97 H 25 H 94 03/15/24 06:12 98 H 31 H 96 03/15/24 06:06 36.5 C 03/15/24 06:00 126/81 03/15/24 05:57 98 H 26 H 96 03/15/24 05:55 96 H 03/15/24 05:45 130/78 03/15/24 05:42 101 H 27 H 96 03/15/24 05:33 100 H 32 H 96 03/15/24 05:30 121/79 03/15/24 05:06 99 H 34 H 95 03/15/24 05:00 118/77 03/15/24 04:45 108 H 32 H 94 03/15/24 04:45 123/74 03/15/24 03:30 120 H 26 H 125/104 H 96 03/15/24 01:59 114 H 94 03/15/24 01:48 95 03/15/24 01:28 116 H 03/15/24 01:19 36.9 C 120 H 27 H 135/85 88 L O2 Del Method O2 Flow Rate 03/15/24 07:36 Nasal Cannula 4 03/15/24 07:09 03/15/24 07:06 03/15/24 06:45 Nasal Cannula 4 03/15/24 06:30 03/15/24 06:30 Nasal Cannula 4 03/15/24 06:12 Nasal Cannula 4 03/15/24 06:06 03/15/24 06:00 03/15/24 05:57 Nasal Cannula 4 03/15/24 05:55 03/15/24 05:45 03/15/24 05:42 Nasal Cannula 4 03/15/24 05:33 Nasal Cannula 4 03/15/24 05:30 03/15/24 05:06 Nasal Cannula 4 03/15/24 05:00 03/15/24 04:45 Nasal Cannula 4 03/15/24 04:45 03/15/24 03:30 Nasal Cannula 4 03/15/24 01:59 Nasal Cannula 4 03/15/24 01:48 Nasal Cannula 4 03/15/24 01:28 03/15/24 01:19 Room Air Critical Care Results & Data Vital Signs (Past 12 Hours) Vital Signs Temp Pulse Pulse Resp BP BP Pulse Ox 03/15/24 07:36 94 H 22 136/88 94 03/15/24 07:09 36.8 C 03/15/24 07:06 96 H 19 94 03/15/24 06:45 96 H 20 127/92 94 03/15/24 06:30 124/96 03/15/24 06:30 97 H 25 H 94 03/15/24 06:12 98 H 31 H 96 03/15/24 06:06 36.5 C 03/15/24 06:00 126/81 03/15/24 05:57 98 H 26 H 96 03/15/24 05:55 96 H 03/15/24 05:45 130/78 03/15/24 05:42 101 H 27 H 96 03/15/24 05:33 100 H 32 H 96 03/15/24 05:30 121/79 03/15/24 05:06 99 H 34 H 95 03/15/24 05:00 118/77 03/15/24 04:45 108 H 32 H 94 03/15/24 04:45 123/74 03/15/24 03:30 120 H 26 H 125/104 H 96 03/15/24 01:59 114 H 94 03/15/24 01:48 95 03/15/24 01:28 116 H 03/15/24 01:19 36.9 C 120 H 27 H 135/85 88 L O2 Del Method O2 Flow Rate 03/15/24 07:36 Nasal Cannula 4 03/15/24 07:09 03/15/24 07:06 03/15/24 06:45 Nasal Cannula 4 03/15/24 06:30 03/15/24 06:30 Nasal Cannula 4 03/15/24 06:12 Nasal Cannula 4 03/15/24 06:06 03/15/24 06:00 03/15/24 05:57 Nasal Cannula 4 03/15/24 05:55 03/15/24 05:45 03/15/24 05:42 Nasal Cannula 4 03/15/24 05:33 Nasal Cannula 03/15/24 05:30 03/15/24 05:06 Nasal Cannula 4 03/15/24 05:00 03/15/24 04:45 Nasal Cannula 4 03/15/24 04:45 03/15/24 03:30 Nasal Cannula 4 03/15/24 01:59 Nasal Cannula 4 03/15/24 01:48 Nasal Cannula 4 03/15/24 01:28 03/15/24 01:19 Room Air Lab & Micro Results (Past 24 Hours) RBC 5.10 M/uL (4.70-6.10) 03/15/24 WBC 21.53 K/ul (4.8-10.8) H 03/15/24 Hgb 14.7 g/dl (14.0-18.0) 03/15/24 Hct 40.9 % (42.0-52.0) L 03/15/24 MCV 80.2 fL (80.0-100.0) 03/15/24 MCH 28.8 pg (25.0-34.0) 03/15/24 MCHC 35.9 g/dL (32.0-36.0) 03/15/24 RDW Standard Deviation 36.4 fL (36.4-46.3) 03/15/24 RDW Coefficient of Variation 12.6 % (11.5-14.5) 03/15/24 Plt Count 269 K/uL (130-400) 03/15/24 MPV 9.3 fL (9.4-12.4) L 03/15/24 Neutrophils (%) (Auto) 80.1 % 03/15/24 Lymphocytes (%) (Auto) 5.5 % 03/15/24 Monocytes # (Auto) 2.58 K/uL (0.11-0.59) H 03/15/24 Eosinophils # (Auto) 0.02 K/uL (0.00-0.50) 03/15/24 Immature Granulocyte % (Auto) 2.0 % 03/15/24 Neutrophils # (Auto) 17.26 K/uL (1.40-6.50) H 03/15/24 Lymphocytes # (Auto) 1.18 K/uL (1.20-3.40) L 03/15/24 Monocytes # (Auto) 2.58 K/uL (0.11-0.59) H 03/15/24 Eosinophils # (Auto) 0.02 K/uL (0.00-0.50) 03/15/24 Basophils # (Auto) 0.07 K/uL (0.00-0.20) 03/15/24 Immature Granulocyte # (Auto) 0.42 K/uL (0.01-0.20) H 03/15 Na 128 mmol/L (136-145) L 03/15/24 K 3.1 mmol/L (3.5-5.1) L 03/15/24 Cl 90 mmol/L (98-107) L 03/15/24 CO2 27 mmol/L (21-32) 03/15/24 Anion Gap 11 (3-11) 03/15/24 BUN 12 mg/dl (6-23) 03/15/24 Creatinine 0.76 mg/dl (0.6-1.4) 03/15/24 BUN/Creatinine Ratio 15.8 (10-20) 03/15/24 Glu 126 mg/dl (70-99(Fasting)) H 03/15/24 Ca 9.0 mg/dl (8.6-10.3) 03/15/24 Total Bilirubin 1.1 mg/dl (0.2-1.0) H 03/15/24 AST 29 U/L (13-39) 03/15/24 ALT 34 U/L (7-52) 03/15/24 Alkaline Phosphatase 105 U/L (34-104) H 03/15/24 TP 7.3 gm/dl (6.0-8.3) 03/15/24 Albumin 3.5 gm/dl (3.4-5.0) 03/15/24 Globulin 3.8 gm/dl (2.5-4.0) 03/15/24 Albumin/Globulin Ratio 0.9 (0.9-2) 03/15/24 Mg 2.2 mg/dl (1.7-2.4) 03/15/24 01:54 Calcium Level 9.0 mg/dl (8.6-10.3) 03/15/24 01:54 Venous Blood pH 7.48 (7.36-7.41) H 03/15/24 01:54 Venous Blood Partial Pressure CO2 41 mmHg (38-50) 03/15/24 01:5 4 Venous Blood Partial Pressure O2 47 mmHg 03/15/24 01:54 Venous Blood HCO3 31 mmol/L 03/15/24 01:54 Venous Blood Base Excess 6.4 mEq/L 03/15/24 01:54 Venous Blood Oxygen Saturation 79.1 % 03/15/24 01:54 Diagnostic Findings (Past 24 Hours) Chest X-Ray 03/15/24 01:30 EXAM: XR chest 2V PA/lateral CLINICAL HISTORY: PNA. TECHNIQUE: X-ray images of the chest were obtained in posteroanterior (PA) and lateral projections. COMPARISON: 03/12/2024 CT. FINDINGS: Pulmonary Parenchyma: Homogenous opacity is noted at the right lung zones and RT hemithorax rises to the right axilla with obliteration of ipsilateral costophrenic recess denoting right lung consolidation with marked pleural effusion. Haziness of the right upper and left lower lung zone. No evidence of left pleural effusion or pleural thickening. Heart and Mediastinum: Heart size and shape are normal. No mediastinal widening or masses. No hilar or mediastinal lymphadenopathy. Bony Thorax: The bony thorax appears intact without fractures or deformities. Soft Tissues: Soft tissues overlying the chest wall are unremarkable. IMPRESSION: Homogenous opacity at the right lung zones and RT hemithorax rising to the right axilla with obliteration of ipsilateral costophrenic recess denoting right lung consolidation with marked pleural effusion. Progressive course compared to the last study. Electronically signed by Aniya Little 03-15-2024 03:39 AM Chest CTA 03/15/24 02:09 EXAM: CT angio chest PE protocol CLINICAL HISTORY: Shortness of breath, abnormal cxr. TECHNIQUE: CT angiography of the chest was performed with contrast with the following protocol: axial images with, reconstructed coronal and sagittal images. 118 cc's optiray 320 was administered using automated injection techniques. Bolus tracking was employed to optimize arterial phase imaging. One of these 3D techniques was utilized: Maximum Intensity Pixel (MIP), 3D Reconstructed Images, Volume Rendered Images, Surface Shaded Rendering. One of the following dose reduction techniques was utilized for this exam: Automated exposure control, adjustment of the mA and/or kV according to patient size, and use of iterative reconstruction. DLP: 962.11 mGy-cm, CTDI: 44.9 mGy. COMPARISON: CT angio dated 03/12/2024. FINDINGS: Right and left main pulmonary arteries as well as segmental branches appear of normal caliber without evidence of any filling defect. No evidence of gross pulmonary arterial thrombosis was identified. Right moderate to marked encysted pleural effusion shows internal air loculi associated with pleural thickening. Underlying right lung segmental and subsegmental consolidation collapse. Associated mild contralateral mediastinal shift. Mild left pleural effusion with underlying left lung subsegmental relaxation atelectasis. Left lung atelectatic bands and tiny nodular densities. Multiple enlarged mediastinal and bilateral hilar lymph nodes, reaching about 3 x 1.2 cm at the subcarinal region. No evidence of cardiomegaly. Minimal pericardial effusion. There is no definite mass lesion in the chest wall. No fractures, lytic, or blastic lesions of the visualized bony structures. Soft tissues are unremarkable. Upper abdomen shows Fatty liver. IMPRESSION: 1. No evidence of acute pulmonary arterial thromboembolic disease. 2. Right moderate to marked encysted pleural effusion currently shows internal air loculi associated with pleural thickening. Underlying right lung segmental and subsegmental consolidation collapse. Progressed. 3. Mild left pleural effusion with underlying left lung subsegmental relaxation atelectasis. Newly developed. 4. Multiple enlarged mediastinal and bilateral hilar lymph nodes. Progressed. Electronically signed by Aniya Little 03-15-2024 04:37 AM I & O Totals 24 Hours 03/14/24 03/15/24 03/16/24 06:59 06:59 06:59 Intake Total 200 / 200 Balance 200 / 200 Cumulative 03/15/24 01:15 thru 03/15/24 05:53 Intake Total 200 Balance 200 RT Ventilator Mngmt (Last Documented) Ventilator Ordered Settings Respiratory Rate 22 03/15/24 07:36 Ventilator - PT Measurements Respiratory Rate 22 PG Care Time/CCT Total # of Minutes Spent Total Time Spent with Patient: Total time spent is greater than 50% in coordination of care (as documented) at patient's floor/unit and/or counseling patient: Coding Level of Care Code 93114 IN/OBS CONSULT LVL 4,60M Diagnoses Parapneumonic effusion J18.9; J91.8 Pneumonia J18.9 Hypoxemia R09.02 Hyponatremia E87.1 Hypokalemia E87.6
--- NOTE | 2024-03-15 08:07 | Procedure Note ---
Procedure Note Date of Service March 15, 2024 Procedure: 14 [place] pigtail catheter placement Indication: Empyema Consent risk and benefits were discussed with the patient. Patient agreed. Written consent was verified prior to commencement of the procedure. Cyber Systems Engineer Dr. Cruz Estimated blood loss: Less than 5 mL Anesthesia: 5 mL 1% lidocaine without epinephrine locally. Procedure: Patient presented with signs and symptoms concerning for complicated parapneumonic effusion. I discussed risk and benefits of chest tube placement with the patient to include surveillance and monitoring. Patient agreed and consent was signed. Timeout was verified prior to commencement of the procedure The patient was placed in a upright seated position. Limited thoracic ultrasound was performed which revealed a complex loculated effusion on the right. Small amount of pleural fluid was identified on the left. Site appropriate for catheter placement was identified inferior lateral to the tip of the scapula. T the area was cleansed using chlorhexidine and a sterile field established. The skin was anesthetized with lidocaine. The muscle and deeper soft tissues were anesthetized using a finder needle. With the finder needle I was aspirated to aspirate yellow/brown fluid. The finder needle was then wi thdrawn. A small skin dalia was made with a scalpel. An 18-gauge needle was then advanced on a similar line until I was able to aspirate fluid. The syringe was withdrawn leaving the needle in place. A wire was passed through the needle and then the needle was withdrawn leaving the wire in the pleural space. A 14 [place] dilator was then passed over the wire to dilate the skin and soft tissues. This passed with ease. The dilator was removed leaving the wire in place. A 14 [place] pigtail catheter was then loaded on a straightening catheter and advanced over the wire into the pleural space. The stiffening catheter and wire were removed leaving the pigtail catheter in place. The locking mechanism was secured. A three-way stopcock was attached. The tube was attached to suction with no airleak on the Pleur-evac system. A skater catheter fixation system was attached to the chest wall and the catheter secured. Catheter was attached to suction at 20 cm of water. Post procedure chest x-ray demonstrated the tube to be in good position with significant residual pleural fluid. Will initiate mist 2 protocol The patient tolerated the procedure well. [facility] [place] Procedure Codes (Charges) Pulmonary/Thoracic Procedure 1: Pulmonary and Thoracic: 54914 Tube thoracostomy Procedure 2: Pulmonary and Thoracic: 29484 US, Chest, real time with imaging documentation Coding CPT Codes Pulmonary/Thoracic - Pulmonary and Thoracic: 92647 Tube thoracostomy ([id number]) Pulmonary/Thoracic - Pulmonary and Thoracic: 27325 US, Chest, real time with imaging documentation ([id number]) Additional Codes Date of Service (PG.SURGERY)
--- NOTE | 2024-03-15 08:20 | XRay Report ---
XR chest 1V portable CLINICAL HISTORY: S/P Thoracentesis COMPARISON STUDY: 03/15/2024 FINDINGS: There is an interval right lower pleural catheter. There is a stable large right pleural ef fusion and extensive associated pulmonary consolidation at the right mid and lower lung. Stable mild stranding opacity at the left base. Stable mild cardiomegaly without pulmonary vascular congestion. N o pneumothorax. IMPRESSION: Interval right pleural catheter. Stable exam otherwise. ACT 112: Negative or not required by law. Electronically signed by: Silvestre Chawla M.D. 03/15/2024 8:18 AM
[2024-03-15 08:38] LABS: INR 1.1 (0.9-1.1); Prothrombin Time 11.8 Seconds (9.0-12.0)
[2024-03-15 08:41] LABS: Appearance Pleural Fluid Cloudy; Color Pleural Fluid Amber; RBC Pleural Fluid Auto 4000 /uL; Source Pleural Fluid Right Lung; WBC Pleural Fluid Auto 15555 /uL
[2024-03-15 09:22] LABS: Lymphocytes, Fluid 2 %; Mono,Macrophage,Mesothelial 13 %; Neutrophils, Fluid 85 %
[2024-03-15 09:28] LABS: Troponin I High Sensitivity 19.9 pg/ml (0-20)
[2024-03-15] MEDS: ALTEPLASE, RECOMBINANT 10 MG in SYRINGE 50 ML IPL SCH (10:17)
[2024-03-15 10:29] LABS: Glucose Pleural Fluid < 10 mg/dl; LDH Pleural Fluid 4189 U/L; Total Protein Pleural Fluid 5.2 gm/dl
[2024-03-15] MEDS: ENOXAPARIN INJ 40 MG/0.4 ML SYR SQ SCH (10:36)
[2024-03-15] MEDS: PIPERACILLIN/TAZOBACTAM 4.5 GM/100 ML BAG IV ONE (10:53)
--- NOTE | 2024-03-15 11:24 | Electrocardiogram Report ---
Test Reason : Blood Pressure : */* mmHG Vent. Rate : 115 BPM Atrial Rate : 115 BPM P-R Int : 144 ms QRS Dur : 110 ms QT Int : 362 ms P-R-T Axes : 34 29 9 degrees QTcB Int : 500 ms Sinus tachycardia Incomplete right bundle branch block Borderline ECG When compared with ECG of 05-Sep-2013 10:43, Vent. rate has increased by 42 bpm Confirmed by Brittaney Alanis ([email or web address]) on 03/15/2024 11:23:29 AM Referred By: REFERRED SELF Confirmed By: Brittaney Alanis
[2024-03-15] MEDS: KETOROLAC TROMETHAMINE 15 MG/ML VIAL IV PRN (11:25)
[2024-03-15] MEDS: HYDROcodone/HOMATROPINE SYRUP 5MG/1.5MG 5ML UDP PO PRN (11:26)
[2024-03-15] MEDS: DORNASE ALFA 5 ML in SYRINGE 25 ML IPL SCH (11:30)
[2024-03-15] MEDS ORDERED: CEFEPIME 2000MG 2,000 MG/20 ML SYR IV SCH (14:00)
[2024-03-15] MEDS: PIPERACILLIN/TAZOBACTAM 4.5 GM/100 ML BAG IV SCH (14:21)
[2024-03-15] MEDS: ACETAMINOPHEN 500 MG TAB PO PRN (16:01)
[2024-03-15] MEDS ORDERED: DOXYCYCLINE HYCLATE 100 MG CAP PO SCH (21:00)
[2024-03-16] MEDS: oxyCODONE HCL IR 5 MG TAB (IMMEDIATE RELEASE) PO PRN (03:44)
[2024-03-16 06:38] LABS: Hematocrit (blood only) 41.6 % (42.0-52.0); Hemoglobin 14.1 g/dl (14.0-18.0); Mean Corpuscular Hemoglobin 28.5 pg (25.0-34.0); Mean Corpuscular Hgb Conc 33.9 g/dL (32.0-36.0); Mean Platelet Volume 9.6 fL (9.4-12.4); Platelet Count 290 K/uL (130-400); RDW Coefficient of Variation 13.3 % (11.5-14.5); RDW Standard Deviation 41.1 fL (36.4-46.3); Red Blood Count 4.95 M/uL (4.70-6.10); White Blood Count 24.75 K/ul (4.8-10.8)
[2024-03-16 07:01] LABS: BUN Creatinine Ratio 29.9 (10-20); Calcium 9.3 mg/dl (8.6-10.3); Creatinine Clr Calc Pharmacy 152.4 ml/min; Potassium 3.9 mmol/L (3.5-5.1)
[2024-03-16 07:24] LABS: Basophils # (auto) 0.12 K/uL (0.00-0.20); Basophils % (auto) 0.5 %; Eosinophils # (auto) 0.01 K/uL (0.00-0.50); Immature Granulocytes # (auto) 1.28 K/uL (0.01-0.20); Immature Granulocytes % (auto) 5.2 %; Lymphocytes # (auto) 1.29 K/uL (1.20-3.40); Lymphocytes % (auto) 5.2 %; Monocytes % (auto) 8.5 %; Neutrophils # (auto) 19.95 K/uL (1.40-6.50); Neutrophils % (auto) 80.6 %
--- NOTE | 2024-03-16 08:22 | XRay Report ---
XR chest 1V portable CLINICAL HISTORY: Chest tube ? MIST 2 protocol COMPARISON STUDY: 03/15/2024 FINDINGS: Stable mild cardiomegaly without pulmonary vascular congestion. Stable right base pleural c atheter. There is improvement in the right pleural effusion with small residual. There is persistent consolidation at the right lower lung and a portion of the right upper lobe. There is a persistent 5 cm masslike opacity at the right mid lung. No pneumothorax. IMPRESSION: 1. Interval improvement in the right pleural effusion. 2. Persistent masslike opacity at the right mid lung. Differential diagnosis includes lung mass and r esidual loculated fluid within the fissure. 3. Persistent consolidation at the right lower lung and a portion of the right upper lobe. ACT 112: Negative or not required by law. Electronically signed by: Silvestre Chawla M.D. 03/16/2024 8:19 AM
--- NOTE | 2024-03-16 11:21 | Pulmonology Progress Note ---
Date of Service March 16, 2024 Assessment & Plan (1) Parapneumonic effusion: (2) Pneumonia: (3) Hypoxemia: (4) Hyponatremia: (5) Hypokalemia: Plan Impression: 43-year-old previously healthy male admitted with pneumonia and parapneumonic effusion on the right. Recommendations: 1. Parapneumonic effusion: Patient appears improving with intrapleural thrombolysis/fibrinolytics. Continue mist 2 protocol. Continue daily chest x- ray. Would keep chest tube in until he completes mist 2 protocol, chest x-ray improves, and output is less than 200 cc per 24 hours 2. Day #2 Zosyn. Can de-escalate to Unasyn. Will need Augmentin at discharge for total of 14 days. No evidence of rash associated with beta-lactam's. Can likely remove allergy from his list 3. Electrolyte replacement per primary admitting service. The above recommendations and plan were extensively discussed with the patient and at the bedside. Questions were answered to the best my ability. He expressed understanding and is in agreement with the plan as outlined Admission and Anticipated Discharge Date Admission Date: March 15, 2024 Subjective Patient seen and examined. EMR reviewed. The patient reports he is feeling better. Was contacted by nursing staff last night that they were having difficulty flushing the catheter. After additional attempts, they were able to clear the catheter and the patient has continued to complete the MIST 2 protocol. He is not reporting any fevers, chills, or night sweats. Review of Systems 2 Review of Systems: All systems reviewed & are unremarkable except as noted in Subjective Physical Exam 2 Constitutional: well nourished; no acute distress Neck: trachea midline, no thyromegaly Respiratory: no respiratory distress, no labored breathing, no cough and not tachypneic Auscultation: + diminished lung sounds Cardiovascular: RRR, no murmur, no edema Gastrointestinal (Abdomen): normal bowel sounds, soft, nontender, no hepatosplenomegaly Musculoskeletal: Extremities: extremities normal to inspection Skin: no rashes, warm and dry Lymphatic: no cervical lymphadenopathy Results & Data Results & Data Vital Signs (Past 12 Hours) Vital Signs Temp Pulse Pulse Resp BP Pulse Ox O2 Del Method 03/16/24 11:16 36.8 C 72 18 143/84 H 96 Room Air 03/16/24 08:36 75 03/16/24 08:36 Nasal Cannula 03/16/24 07:33 36.5 C 72 18 142/84 H 96 Nasal Cannula 03/16/24 03:33 36.4 C L 77 19 142/85 H 95 Nasal Cannula O2 Flow Rate 03/16/24 11:16 03/16/24 08:36 03/16/24 08:36 3 03/16/24 07:33 2 03/16/24 03:33 3 Laboratory Results 03/16/24 05:29 03/16/24 05:29 Pleural fluid studies: Differential 85% neutrophils, 2% lymphocytes, 13% mesothelial cells pH less than 7 Total protein 5.2 LDH 4189 Glucose less than 10 Cytology pending Gram stain with many white blood cells and no organisms, cultures pending Diagnostic Findings Chest x-ray from today was independently reviewed. The tubes in good position. There is been significant decrease in the right-sided pleural effusion but significant fluid remains. No pneumothorax. PG Care Time/CCT Total # of Minutes Spent Total Time Spent with Patient: Total time spent is greater than 50% in coordination of care (as documented) at patient's floor/unit and/or counseling patient: Coding Level of Care Code 37169 SUB INP/OBS CARE 2MIN Diagnoses Parapneumonic effusion J18.9; J91.8 Pneumonia J18.9 Hypoxemia R09.02 Hyponatremia E87.1 Hypokalemia E87.6
[2024-03-16] MEDS: AMPICILLIN/SULBACTAM SOD 3,000 MG/100 ML BAG IV SCH (12:51)
--- NOTE | 2024-03-16 14:41 | Hospitalist Progress Note ---
Date of Service March 16, 2024 Assessment & Plan (1) Severe sepsis: Plan: Acute hypoxic respiratory failure Severe sepsis: SIRS plus hypoxemia secondary to complicated Right-sided pneumonia with effusion 03/15: Status post pigtail catheter placement 03/16 Patient clinically improving On 2 L of O2 via nasal cannula 160 cc output noted so far Mist 2 protocol in progress Pleural fluid cultures: Pending Blood cultures: Pending IV Zosyn changed to IV Unasyn Hyponatremia secondary to illness Resolving Hyperglycemia rule out DM A1c 5.3 Mood disorder, stable off maintenance medications DVT prophylaxis per Lovenox subcu Full code Admission and Anticipated Discharge Date Admission Date: March 15, 2024 Subjective Follow-up for acute hypoxic respiratory failure, right parapneumonic effusion, etc. Seen sitting up in bed, comfortable, not in distress, on 2 L of O2 via nasal cannula Patient states he continues to feel improved overall Breathing is gradually improving although still far from baseline as per patient Still having some pain over the catheter placement site No other new symptoms Review of Systems Review of Systems: all noted and negative except for above Physical Exam Physical Exam: General- oriented x 3, not in distress, speaks in sentences with no effort or accessory muscle use Eyes- anicteric Neck- no JVD Lungs-Right lung: Catheter in place, no signs of bleeding or infection Positive mild crackles mid to base Left lung: Clear Heart- normal rate, regular rhythm; no murmurs Abdomen- normal bowel sounds, nondistended, soft, nontender Extremities- no pretibial edema, no calf tenderness Neuro- alert, oriented x 3; no gross focal neurologic deficits Skin- warm & dry Results & Data Results & Data Vital Signs (Past 12 Hours) Vital Signs Temp Pulse Pulse Resp BP Pulse Ox O2 Del Method 03/16/24 11:16 36.8 C 72 18 143/84 H 96 Room Air 03/16/24 08:36 75 03/16/24 08:36 Nasal Cannula 03/16/24 07:33 36.5 C 72 18 142/84 H 96 Nasal Cannula 03/16/24 03:33 36.4 C L 77 19 142/85 H 95 Nasal Cannula O2 Flow Rate 03/16/24 11:16 03/16/24 08:36 03/16/24 08:36 3 03/16/24 07:33 2 03/16/24 03:33 3 all noted and reviewed including below
[2024-03-17 09:06] LABS: Hematocrit (blood only) 39.7 % (42.0-52.0); Hemoglobin 13.4 g/dl (14.0-18.0); Mean Corpuscular Hgb Conc 33.8 g/dL (32.0-36.0); Mean Corpuscular Volume 83.1 fL (80.0-100.0); Mean Platelet Volume 9.1 fL (9.4-12.4); Platelet Count 330 K/uL (130-400); RDW Coefficient of Variation 13.5 % (11.5-14.5); RDW Standard Deviation 40.5 fL (36.4-46.3); Red Blood Count 4.78 M/uL (4.70-6.10); White Blood Count 21.09 K/ul (4.8-10.8)
--- NOTE | 2024-03-17 09:07 | XRay Report ---
EXAM: XR chest 1V portable CLINICAL HISTORY: Follow up. TECHNIQUE: An X-ray image of the chest was obtained in AP projection. COMPARISON: CT dated 03/15/2024 was reviewed. FINDINGS: A right-sided chest tube is seen in situ. Pulmonary Parenchyma: Interval reduction in right-sided pleural effusion with improvement in the aeration of the right lung. Patchy opacification in the right mid/lower zone, may represent the re-expansion edema. Atelectatic changes in the right mid and lower zone. Stable mild left pleural effusion. Heart and Mediastinum: Heart size and shape are normal. No mediastinal widening or masses. No hilar or mediastinal lymphadenopathy. Bony Thorax: The bony thorax appears intact without fractures or deformities. Soft Tissues: Soft tissues overlying the chest wall are unremarkable. Multiple tubing artifacts are seen. A partially visualized cervical spinal fixator. IMPRESSION: 1. A right-sided Pigtail is seen in place. 2. Interval reduction in right-sided pleural effusion with improvement in the aeration of the right lung. 3. Patchy opacification in the right mid/lower zone, may represent the re-expansion edema(new). 4. Stable mild left pleural effusion. Electronically signed by Aniya Little 03-17-2024 09:07 AM
[2024-03-17 09:19] LABS: BUN Creatinine Ratio 22.9 (10-20); Calcium 8.1 mg/dl (8.6-10.3); Creatinine Clr Calc Pharmacy 142.6 ml/min; Potassium 3.2 mmol/L (3.5-5.1)
[2024-03-17 09:31] LABS: Basophils # (auto) 0.07 K/uL (0.00-0.20); Basophils % (auto) 0.3 %; Eosinophils % (auto) 0.9 %; Immature Granulocytes # (auto) 1.33 K/uL (0.01-0.20); Immature Granulocytes % (auto) 6.3 %; Lymphocytes # (auto) 2.17 K/uL (1.20-3.40); Lymphocytes % (auto) 10.3 %; Monocytes # (auto) 1.18 K/uL (0.11-0.59); Monocytes % (auto) 5.6 %; Neutrophils # (auto) 16.14 K/uL (1.40-6.50); Neutrophils % (auto) 76.6 %
--- NOTE | 2024-03-17 09:53 | Pulmonology Progress Note ---
Date of Service March 17, 2024 Assessment & Plan (1) Parapneumonic effusion: (2) Pneumonia: (3) Hypoxemia: (4) Hyponatremia: (5) Hypokalemia: Plan CTA chest 03/15/2024 personally reviewed: RIGHT sided loculated effusion concerning for empyema. CXR 03/17/2024 personally reviewed: RIGHT sided pigtail catheter in place. Continued improvement in effusion with persistence of RIGHT mid lung zone infiltrate. VBG 03/15/2024: 7.48/41/47 -- Parapneumonic Effusion Chest tube placed 03/15/2024 Continues Mist 2 Protocol at this time. Output of 175 mL this AM. Tolerating Unasyn well, continue for now. Plan for de-escalation to Augmentin in the outpatient setting. Continue with pain control as needed. Please note the above document was generated using voice recognition software. It may contain grammatical, syntax or spelling errors.Any formal questions or concerns about the content, text or information contained within the body of this dictation should be directly addressed to the provider for clarification. Admission and Anticipated Discharge Date Admission Date: March 15, 2024 Supervising Physician Co-Signing Physician Notes I saw and evaluated the patient with Sandeep Streeter PA-C, and agree with findings and plan as documented in the note. CT chest 03/15/2024 personally reviewed: Large right-sided pleural effusion with pockets of gas Significant consolidative process versus atelectasis of the right middle and right lower lobe Pleural thickening on the right side Mediastinal shift to the left Minimal mediastinal and right hilar lymphadenopathy Patient seen and examined at bedside. Case was discussed with outgoing edge kitter At the time of examination patient was saturating 94 L on 2 L nasal cannula. Still complaining of significant coughing. Denies any chest pain. Mild discomfort at the site of the tube Bringing up copious amount of phlegm. No hemoptysis. Denies any headache. No nausea or vomiting, fair appetite Lifetime non-smoker. Has cats and dogs at home. Denies any exposure to tuberculosis. Never has been incarcerated Constitutional: No acute distress HEENT: EOMI, PERRLA Respiratory system: Decreased air entry on the right side, no wheeze, no rhonchi, positive crackles bilateral lower lobes CVS: S1-S2 positive, no murmurs or gallops Abdomen: Soft, nontender, nondistended, positive bowel sounds x4 Extremities: +2 pulses bilaterally radialis/ dorsalis pedis, no cyanosis, no edema Neuro: Awake alert oriented x3 Psych: Normal mood and affect G/U: No Sood Plan: Chest x-ray from today shows improvement in the right-sided pleural effusion Some loculated effusion on the periphery on the right side still persists, chest tube in place Fluid exudative with LDH 4189 Pleural fluid cultures are negative to date Continue with antibiotics Continue with MIST 2 protocol I will repeat CAT scan of the chest in 12 hours after the mist 2 protocol is done. If the patient still has significant loculations that he might still need VATS. This was explained to the patient There is strong family history of Hodgkin's lymphoma in his brother. The patient's presentation could very well be related to that. Pathologist was made aware to look for lymphoma in the pleural fluid Please note the above document was generated using voice recognition software. It may contain grammatical, syntax or spelling errors.Any formal questions or concerns about the content, text or information contained within the body of this dictation should be directly addressed to the provider for clarification. Subjective Patient seen and evaluated at bedside. He reports feeling significantly better than when he had arrived at the hospital. He is breathing much better. He does report some pain at the site of insertion of chest tube. He has done well with ambulation. Still has some shortness of breath and required supplemental oxygen at times. No complaints of chest pain, palpitations, or hemoptysis. He is expectorating whitish sputum. Seems to be tolerating Mist 2 protocol well. No other complaints this time Review of Systems 2 Review of Systems: As per subjective Physical Exam 2 Physical Exam: VITAL SIGNS Vital signs and nursing notes were reviewed. GENERAL 43-year-old male appearing his stated age who is in no acute distress. Communicates well with provider and answers questions appropriately. SKIN RIGHT sided posterior insertion site clean, dry, and intact. MOUTH/OROPHARYNX Without perioral cyanosis. LUNGS Chest wall evaluation demonstrates normal chest wall A:P diameter. Auscultation reveals diminished breath sounds to the RIGHT sided lung field. CARDIAC RRR with S1/S2. No murmur, rubs, or gallops appreciated. PSYCH A&Ox3 and cooperates fully with examiner. Pt is very pleasant and interacts well with examiner. Results & Data Results & Data Vital Signs (Past 12 Hours) Vital Signs Temp Pulse Pulse Resp BP Pulse Ox O2 Del Method 03/17/24 08:00 36.8 C 98 H 18 95 Nasal Cannula 03/17/24 02:21 37.3 C 104 H 18 143/76 H 93 Nasal Cannula 03/16/24 23:24 36.5 C 94 H 18 150/78 H 95 Nasal Cannula 03/16/24 21:57 88 O2 Flow Rate 03/17/24 08:00 2 03/17/24 02:21 2.0 03/16/24 23:24 2.0 03/16/24 21:57 Laboratory Results 03/17/24 08:41 03/17/24 08:41 PG Care Time/CCT Total # of Minutes Spent Total Time Spent with Patient: Total time spent is greater than 50% in coordination of care (as documented) at patient's floor/unit and/or counseling patient: Coding Level of Care Code 70123 SUB INP/OBS CARE 3/50MIN Diagnoses Parapneumonic effusion J18.9; J91.8 Pneumonia J18.9 Hypoxemia R09.02 Hyponatremia E87.1 Hypokalemia E87.6
--- NOTE | 2024-03-17 11:57 | Hospitalist Progress Note ---
Date of Service March 17, 2024 Assessment & Plan (1) Severe sepsis: Plan: Acute hypoxic respiratory failure Severe sepsis: SIRS plus hypoxemia secondary to complicated Right-sided pneumonia with effusion 03/15: Status post pigtail catheter placement 03/16 Patient clinically improving On 2 L of O2 via nasal cannula 160 cc output noted so far Mist 2 protocol in progress Pleural fluid cultures: Pending Blood cultures: Pending IV Zosyn changed to IV Unasyn 03/17 fluid studies: exudative effusion pleural fluid culture: negative pathology: pending repeat CT chest today may need VATS if with persistent loculated effusion per Pulm Hyponatremia secondary to illness Na 133--> 131 Hyperglycemia rule out DM A1c 5.3 Mood disorder, stable off maintenance medications DVT prophylaxis per Lovenox subcu Full code Admission and Anticipated Discharge Date Admission Date: March 15, 2024 Subjective ff up for parapneumonic effusion, etc seen resting in bed, comfortable on 2 L NC states breathing continues to improve gradually still having productive cough- also improving still has pain on the pleurex cath site no other symptoms Review of Systems Review of Systems: all noted and negative except for above Physical Exam Physical Exam: General- oriented x 3, not in distress, speaks in sentences with no effort or accessory muscle use Eyes- anicteric Neck- no JVD Lungs- clear breath sounds bilaterally, no rales/wheezes Heart- normal rate, regular rhythm; no murmurs Abdomen- normal bowel sounds, nondistended, soft, no tenderness Extremities- no pretibial edema, no calf tenderness Neuro- alert, oriented x 3; no gross focal neurologic deficits Skin- warm & dry Results & Data Results & Data Vital Signs (Past 12 Hours) Vital Signs Temp Pulse Pulse Resp BP Pulse Ox O2 Del Method 03/17/24 10:00 84 03/17/24 10:00 Nasal Cannula, Ambu-Bag 03/17/24 08:00 36.8 C 98 H 18 95 Nasal Cannula 03/17/24 02:21 37.3 C 104 H 18 143/76 H 93 Nasal Cannula O2 Flow Rate 03/17/24 10:00 03/17/24 10:00 03/17/24 08:00 2 03/17/24 02:21 2.0 all noted and reviewed including below
[2024-03-17] MEDS: POTASSIUM CHLORIDE CRTAB 20 MEQ TABCR PO STA (12:12)
[2024-03-17] MEDS: POLYETHYLENE (MIRALAX) 17 GM PACK PO PRN (17:50)
--- NOTE | 2024-03-18 08:04 | XRay Report ---
EXAM: XR chest 1V portable CLINICAL HISTORY: CHEST TUBE. TECHNIQUE: An X-ray image of the chest is obtained in AP projection. COMPARISON: prior 03/17/2024. FINDINGS: A right-sided chest tube is seen in situ at level of 8th intercostal space. Pulmonary Parenchyma: Interval stable right-sided pleural effusion. Stable patchy opacification in the right mid/lower zone. Stable mild left pleural effusion. Heart and Mediastinum: Moderate cardiomegaly No mediastinal widening or masses. No hilar or mediastinal lymphadenopathy. Bony Thorax: The bony thorax appears intact without fractures or deformities. Soft Tissues: Soft tissues overlying the chest wall are unremarkable. A partially visualized cervical spinal fixator. IMPRESSION: 1. A right-sided chest tube is seen in situ. 2. Unchanged right-sided pleural effusion. 3. Unchanged patchy opacification in the right mid/lower zone. 4. Stable mild left pleural effusion. 5. Moderate cardiomegaly Electronically signed by Aniya Little 03-18-2024 08:04 AM
[2024-03-18 08:49] LABS: Hematocrit (blood only) 36.4 % (42.0-52.0); Hemoglobin 12.4 g/dl (14.0-18.0); Mean Corpuscular Hemoglobin 28.8 pg (25.0-34.0); Mean Corpuscular Hgb Conc 34.1 g/dL (32.0-36.0); Mean Corpuscular Volume 84.7 fL (80.0-100.0); Mean Platelet Volume 9.1 fL (9.4-12.4); Platelet Count 384 K/uL (130-400); RDW Coefficient of Variation 13.4 % (11.5-14.5); RDW Standard Deviation 41.5 fL (36.4-46.3)
[2024-03-18 08:50] LABS: BUN Creatinine Ratio 17.2 (10-20); Calcium 8.1 mg/dl (8.6-10.3); Potassium 3.7 mmol/L (3.5-5.1)
--- NOTE | 2024-03-18 09:09 | Pulmonology Progress Note ---
Date of Service March 18, 2024 Assessment & Plan (1) Parapneumonic effusion: (2) Pneumonia: (3) Hypoxemia: (4) Hyponatremia: (5) Hypokalemia: Plan CTA chest 03/15/2024 personally reviewed: RIGHT sided loculated effusion concerning for empyema. CXR 03/18/2024 personally reviewed: RIGHT sided pigtail catheter in place. No real change in effusion with persistence of RIGHT mid lung zone infiltrate. VBG 03/15/2024: 7.48/41/47 -- Parapneumonic Effusion Chest tube placed 03/15/2024 Completed Mist 2 Protocol last evening. Output of 600 mL overnight and 400 mL yesterday (03/17/2024). Given persistence of effusion noted on imaging as well as ongoing high output after completion of mist 2 protocol, we will proceed with chest CT without contrast to assess lung parenchyma and pleural space. Low threshold for communicating with/transferring to facility with thoracic surgery capabilities as the patient will potentially require decortication. Tolerating Unasyn well, continue for now. Plan for de-escalation to Augmentin in the outpatient setting. Continue with pain control as needed. Please note the above document was generated using voice recognition software. It may contain grammatical, syntax or spelling errors.Any formal questions or concerns about the content, text or information contained within the body of this dictation should be directly addressed to the provider for clarification. Admission and Anticipated Discharge Date Admission Date: March 15, 2024 Supervising Physician Co-Signing Physician Notes I saw and evaluated the patient with Sandeep Streeter PA-C, and agree with findings and plan as documented in the note. CT chest 03/18/2024 personally reviewed: Right sided hydro-pneumothorax with loculated effusion anterior and in the fissure Pleural thickening on the right side Minimal mediastinal and right hilar lymphadenopathy Patient seen and examined at bedside. No acute distress, notable symptoms overnight He was saturating 92-93% on 1 L nasal cannula. Stated that the cough has decreased in intensity. Still bringing copious amount of phlegm No chest pain, shortness of breath is at baseline No unusual headache or blurry vision No fever or chills Lifetime non-smoker. Has cats and dogs at home. Denies any exposure to tuberculosis. Never has been incarcerated Constitutional: No acute distress HEENT: EOMI, PERRLA Respiratory system: Decreased air entry on the right side, no wheeze, no rhonchi, positive crackles bilateral lower lobes CVS: S1-S2 positive, no murmurs or gallops Abdomen: Soft, nontender, nondistended, positive bowel sounds x4 Extremities: +2 pulses bilaterally radialis/ dorsalis pedis, no cyanosis, no edema Neuro: Awake alert oriented x3 Psych: Normal mood and affect G/U: No Sood Plan: Unfortunately the chest x-ray from today showed stable loculated effusion on the right side CAT scan of the chest was repeated which still shows anterior loculation with fluid in the fissure and thickening of the pleura with hydropneumothorax I think this will be considered as failure off MIST 2 protocol and consideration should be made for VATS. Pleural fluid cultures were positive for Prevotella, Augmentin should cover. Would recommend total 6 weeks of antibiotics Fluid exudative with LDH 4189 Cytology is negative for malignancy Continue with antibiotics Continue with MIST 2 protocol Case was discussed with patient's on the phone, RN as well as primary team Please note the above document was generated using voice recognition software. It may contain grammatical, syntax or spelling errors.Any formal questions or concerns about the content, text or information contained within the body of this dictation should be directly addressed to the provider for clarification. Subjective Patient seen and evaluated at bedside. He continues to feel better each day. He remains with a cough productive of tannish-brown sputum. No hemoptysis. No persistent fevers. No chest pain. He does have pain at the site of insertion. Continues to have moderate to high output from chest tube site. Review of Systems 2 Review of Systems: As per subjective Physical Exam 2 Physical Exam: VITAL SIGNS Vital signs and nursing notes were reviewed. GENERAL 43-year-old male appearing his stated age who is in no acute distress. Communicates well with provider and answers questions appropriately. SKIN RIGHT sided posterior insertion site with dried blood at the site and underlying edema with tenderness to palpation. MOUTH/OROPHARYNX Without perioral cyanosis. LUNGS Chest wall evaluation demonstrates normal chest wall A:P diameter. Auscultation reveals diminished breath sounds to the RIGHT sided lung field - improved from yesterday. CARDIAC RRR with S1/S2. No murmur, rubs, or gallops appreciated. PSYCH A&Ox3 and cooperates fully with examiner. Pt is very pleasant and interacts well with examiner. Results & Data Results & Data Vital Signs (Past 12 Hours) Vital Signs Temp Pulse Pulse Resp BP Pulse Ox O2 Del Method 03/18/24 08:00 Nasal Cannula 03/18/24 07:34 108 H 03/18/24 07:30 36.9 C 104 H 18 131/79 94 Nasal Cannula 03/18/24 03:28 36.8 C 96 H 18 124/78 94 Nasal Cannula 03/17/24 23:21 Nasal Cannula 03/17/24 23:18 37.1 C 99 H 18 134/77 94 Nasal Cannula 03/17/24 21:55 109 H O2 Flow Rate 03/18/24 08:00 03/18/24 07:34 03/18/24 07:30 2 03/18/24 03:28 2 03/17/24 23:21 2 03/17/24 23:18 03/17/24 21:55 Laboratory Results 03/18/24 05:37 03/18/24 05:31 PG Care Time/CCT Total # of Minutes Spent Total Time Spent with Patient: Total time spent is greater than 50% in coordination of care (as documented) at patient's floor/unit and/or counseling patient: Coding Level of Care Code 54010 SUB INP/OBS CARE 3/50MIN Diagnoses Parapneumonic effusion J18.9; J91.8 Pneumonia J18.9 Hypoxemia R09.02 Hyponatremia E87.1 Hypokalemia E87.6
[2024-03-18 09:12] LABS: Basophils # (auto) 0.15 K/uL (0.00-0.20); Basophils % (auto) 0.5 %; Eosinophils # (auto) 0.32 K/uL (0.00-0.50); Eosinophils % (auto) 1.1 %; Immature Granulocytes # (auto) 2.08 K/uL (0.01-0.20); Immature Granulocytes % (auto) 7.5 %; Lymphocytes # (auto) 2.59 K/uL (1.20-3.40); Lymphocytes % (auto) 9.3 %; Monocytes % (auto) 5.7 %; Neutrophils # (auto) 21.16 K/uL (1.40-6.50); Neutrophils % (auto) 75.9 %
--- NOTE | 2024-03-18 13:42 | CT Scan Report ---
CT chest diagnostic wo con CT DOSE: 732.68 mGy.cm CLINICAL HISTORY: RIGHT sided empyema s/p Mist 2 protocol. TECHNIQUE: Multiaxial CT images of the chest were performed without contrast. A dose lowering techni que was utilized adhering to the principles of ALARA. Sagittal and coronal reconstructions were done. COMPARISON STUDY: 03/15/2024 FINDINGS: Since the prior study, a large bore catheter has been inserted into the right inferolateral pleural space and the contiguous lower lobe loculation of the empyema has significantly decreased in size with some reexpansion of the right lower lobe and right middle lobe. However, the lenticular lo culated component within the major fissure and the larger component in the right anterolateral thorax remain unchanged. There is persistent atelectasis within the medial segment of the right middle lobe and the posterior medial basal segments of the right lower lobe. Air bronchograms are present and as sociated infection cannot be excluded. The loculated component containing an air-fluid level in the medial aspect of the right pleural space anteriorly has increased in size. There is no central airway lesion identified. The left lung remains clear. Mediastinal and right stacy r adenopathy are persistent. There is a small pericardial effusion which is unchanged. IMPRESSION: The caudal component of the loculated empyema has been diminished by the placement of a p leural catheter with slight improvement in right lower lobe and right middle lobe expansion. However, persistent loculated collections in the major fissure, right anterolateral pleural space, and right anteromedial pleural space remain undrained and the anteromedial lesion has increased in size and con tains an air-fluid level. Lymphadenopathy is redemonstrated. Small pericardial effusion unchanged. Left lung remains clear. ACT 112: Negative or not required by law. Electronically signed by: Kimmie Lemus M.D. 03/18/2024 1:41 PM
--- NOTE | 2024-03-18 14:32 | Hospitalist Progress Note ---
Date of Service March 18, 2024 Assessment & Plan (1) Severe sepsis: Plan: Acute hypoxic respiratory failure Severe sepsis: SIRS plus hypoxemia secondary to complicated Right-sided pneumonia with effusion 03/15: Status post pigtail catheter placement 03/16 Patient clinically improving On 2 L of O2 via nasal cannula 160 cc output noted so far Mist 2 protocol in progress Pleural fluid cultures: Pending Blood cultures: Pending IV Zosyn changed to IV Unasyn 03/17 fluid studies: exudative effusion pleural fluid culture: negative repeat CT chest today may need VATS if with persistent loculated effusion per Pulm 03/18 Remains on 2 L of O2 via nasal cannula Still having some dyspnea as per patient Pleural fluid drainage around 600 cc yesterday Pleural fluid culture and sensitivity: Prevotella, Parvimonas Pleural fluid cytology: Negative for malignancy, abundant acute inflammatory cells and necrosis compatible with empyema Repeat CT chest:: The caudal component of the loculated empyema has been diminished by the placement of a pleural catheter with slight improvement in right lower lobe and right middle lobe expansion. However, persistent loculated collections in the major fissure, right anterolateral pleural space, and right anteromedial pleural space remain undrained and the anteromedial lesion has increased in size and contains an air-fluid level. Lymphadenopathy is redemonstrated. Small pericardial effusion unchanged. Left lung remains clear. Per rehab specialist Dr. Durant-patient needs to be transferred to tertiary level of care for VATS procedure, failure of mist 2 protocol Hyponatremia secondary to illness Na 133--> 132 Hyperglycemia rule out DM A1c 5.3 Mood disorder, stable off maintenance medications DVT prophylaxis per Lovenox subcu Full code Admission and Anticipated Discharge Date Admission Date: March 15, 2024 Subjective Follow-up for acute hypoxic respiratory failure, parapneumonic effusion, status post Pleurx cath placement etc. Seen sitting up in bed, comfortable, not in distress, on 2 L of oxygen States he feels about the same as yesterday Still having some dyspnea, mild productive cough, no hemoptysis No fevers or chills No other new symptoms Review of Systems Review of Systems: all noted and reviewed including below Physical Exam Physical Exam: General- oriented x 3, not in distress, speaks in sentences with no effort or accessory muscle use Eyes- anicteric Neck- no JVD Lungs- Decreased breath sounds right base, clear on the left Right: PleurX catheter in place Heart- normal rate, regular rhythm; no murmurs Abdomen- normal bowel sounds, nondistended, soft, nontender Extremities- no pretibial edema, no calf tenderness Neuro- alert, oriented x 3; no gross focal neurologic deficits Skin- warm & dry Results & Data Results & Data Vital Signs (Past 12 Hours) Vital Signs Temp Pulse Pulse Resp BP Pulse Ox O2 Del Method 03/18/24 11:08 37.1 C 97 H 20 152/88 H 93 Nasal Cannula 03/18/24 08:00 Nasal Cannula 03/18/24 07:34 108 H 03/18/24 07:30 36.9 C 104 H 18 131/79 94 Nasal Cannula 03/18/24 03:28 36.8 C 96 H 18 124/78 94 Nasal Cannula O2 Flow Rate 03/18/24 11:08 1 03/18/24 08:00 03/18/24 07:34 03/18/24 07:30 2 03/18/24 03:28 2 all noted and reviewed including below
--- NOTE | 2024-03-18 14:36 | Discharge Summary ---
Discharge Summary Date of Service March 18, 2024 Principal Dx & Hospital Course #1 = Principal Diagnosis (1) Parapneumonic effusion: (1) Severe sepsis: Plan: Acute hypoxic respiratory failure Severe sepsis: SIRS plus hypoxemia secondary to complicated Right-sided pneumonia with effusion 03/15: Status post pigtail catheter placement 03/16 Patient clinically improving On 2 L of O2 via nasal cannula 160 cc output noted so far Mist 2 protocol in progress Pleural fluid cultures: Pending Blood cultures: Pending IV Zosyn changed to IV Unasyn 03/17 fluid studies: exudative effusion pleural fluid culture: negative repeat CT chest today may need VATS if with persistent loculated effusion per Pulm 03/18 Remains on 2 L of O2 via nasal cannula Still having some dyspnea as per patient Pleural fluid drainage around 600 cc yesterday Pleural fluid culture and sensitivity: Prevotella, Parvimonas Pleural fluid cytology: Negative for malignancy, abundant acute inflammatory cells and necrosis compatible with empyema Repeat CT chest:: The caudal component of the loculated empyema has been diminished by the placement of a pleural catheter with slight improvement in right lower lobe and right middle lobe expansion. However, persistent loculated collections in the major fissure, right anterolateral pleural space, and right anteromedial pleural space remain undrained and the anteromedial lesion has increased in size and contains an air-fluid level. Lymphadenopathy is redemonstrated. Small pericardial effusion unchanged. Left lung remains clear. 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 Medical history significant for gout, mood disorder. 6 days ago, patient started feeling sick. Generalized weakness associated with dry cough symptoms which later progressed to junky yellow expectorate. Achy right-sided chest pain. Poor appetite. Not sure about sick contacts. Denies aspiration. Denies fluid retention. Patient consulted [facility] ER 4 days ago due to worsening symptoms. Patient prescribed Levaquin for right lower lobe pneumonia. Patient returned to [facility] ER the following day due to worsening symptoms. CT angio chest negative for PE. Bronchopneumonia with right moderate parapneumonic effusion and reactive mediastinal lymphadenopathy on imaging. Patient discharged home and instructed to complete Levaquin Rx. Patient not better despite compliance with antibiotic Rx. Cough productive of yellow-brown sputum. Patient brought to ER by for evaluation. O2 sats 88 on room air. Vancomycin and doxycycline administered at the ER. 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 Admission Exam Per Admitting Provider GENERAL: Comfortable, minimal respiratory distress SKIN: Normal color, warm HEENT: Roca palpebral conjunctivae, no ptosis, dry buccal mucosa, nasal cannula in place NECK : Supple, no tenderness CHEST : Decreased breath sounds, occasional expiratory wheezes, no tenderness HEART : Tachycardic, no obvious murmurs ABDOMEN: Some distention, nontender EXTREMITIES : No LE swelling/tenderness, no other conspicuous deformities noted NEUROLOGIC : Coherent, no facial asymmetry, no other gross focality Discharge Exam General- oriented x 3, not in distress, speaks in sentences with no effort or accessory muscle use Eyes- anicteric Neck- no JVD Lungs- Decreased breath sounds right base, clear on the left Right: PleurX catheter in place Heart- normal rate, regular rhythm; no murmurs Abdomen- normal bowel sounds, nondistended, soft, nontender Extremities- no pretibial edema, no calf tenderness Neuro- alert, oriented x 3; no gross focal neurologic deficits Updated Medication List Medication Instructions Recorded Confirmed Type levofloxacin 750 mg tablet 750 mg PO .EVERY 24 HOURS 03/15/24 03/15/24 History acetaminophen 500 mg tablet 500 mg PO Q6H PRN fever or pain 03/18/24 Rx (Tylenol Extra Strength) #20 tabs enoxaparin 40 mg/0.4 mL 40 mg (0.4 mL) subcut QAM 14 days 03/18/24 Rx subcutaneous syringe (Lovenox) #5.6 mL hydrocodone-homatropine 5 mg-1.5 5 ml PO Q4H PRN cough 10 days #473 03/18/24 Rx mg/5 mL oral syrup (Hydromet) mL oxycodone 5 mg tablet 5 mg PO Q4H PRN pain #10 tabs 03/18/24 Rx polyethylene glycol 3350 17 gram 17 g PO DAILY PRN constipation #10 03/18/24 Rx oral powder packet (Miralax) ea Hospital Stay Data Consultations 03/15/24 04:47 ED Decision to Admit Stat 03/15/24 05:51 Consult Pulmonology Routine Diagnostic Imagining Performed 03/15/24 02:09 CT angio chest PE protocol Stat ADDENDUM Addendum Report EXAM: CT angio chest PE protocol ADDENDUM: The results were sent successfully via fax at [phone] at 4:18 AM TERRAZZO LAYER, 03/15/2024. Electronically signed by Aniya Little 03-15-2024 04:37 AM ADDENDUM END EXAM: CT angio chest PE protocol CLINICAL HISTORY: Shortness of breath, abnormal cxr. TECHNIQUE: CT angiography of the chest was performed with contrast with the following protocol: axial images with, reconstructed coronal and sagittal images. 118 cc's optiray 320 was administered using automated injection techniques. Bolus tracking was employed to optimize arterial phase imaging. One of these 3D techniques was utilized: Maximum Intensity Pixel (MIP), 3D Reconstructed Images, Volume Rendered Images, Surface Shaded Rendering. One of the following dose reduction techniques was utilized for this exam: Automated exposure control, adjustment of the mA and/or kV according to patient size, and use of iterative reconstruction. DLP: 962.11 mGy-cm, CTDI: 44.9 mGy. COMPARISON: CT angio dated 03/12/2024. FINDINGS: Right and left main pulmonary arteries as well as segmental branches appear of normal caliber without evidence of any filling defect. No evidence of gross pulmonary arterial thrombosis was identified. Right moderate to marked encysted pleural effusion shows internal air loculi associated with pleural thickening. Underlying right lung segmental and subsegmental consolidation collapse. Associated mild contralateral mediastinal shift. Mild left pleural effusion with underlying left lung subsegmental relaxation atelectasis. Left lung atelectatic bands and tiny nodular densities. Multiple enlarged mediastinal and bilateral hilar lymph nodes, reaching about 3 x 1.2 cm at the subcarinal region. No evidence of cardiomegaly. Minimal pericardial effusion. There is no definite mass lesion in the chest wall. No fractures, lytic, or blastic lesions of the visualized bony structures. Soft tissues are unremarkable. Upper abdomen shows Fatty liver. IMPRESSION: 1. No evidence of acute pulmonary arterial thromboembolic disease. 2. Right moderate to marked encysted pleural effusion currently shows internal air loculi associated with pleural thickening. Underlying right lung segmental and subsegmental consolidation collapse. Progressed. 3. Mild left pleural effusion with underlying left lung subsegmental relaxation atelectasis. Newly developed. 4. Multiple enlarged mediastinal and bilateral hilar lymph nodes. Progressed. Electronically signed by Aniya Little 03-15-2024 04:37 AM Dictated: 03/15/2431503/18/24 13:00 CT chest diagnostic wo con Routine CT chest diagnostic wo con CT DOSE: 732.68 mGy.cm CLINICAL HISTORY: RIGHT sided empyema s/p Mist 2 protocol. TECHNIQUE: Multiaxial CT images of the chest were performed without contrast. A dose lowering technique was utilized adhering to the principles of ALARA. Sagittal and coronal reconstructions were done. COMPARISON STUDY: 03/15/2024 FINDINGS: Since the prior study, a large bore catheter has been inserted into the right inferolateral pleural space and the contiguous lower lobe loculation of the empyema has significantly decreased in size with some reexpansion of the right lower lobe and right middle lobe. However, the lenticular loculated component within the major fissure and the larger component in the right anterolateral thorax remain unchanged. There is persistent atelectasis within the medial segment of the right middle lobe and the posterior medial basal segments of the right lower lobe. Air bronchograms are present and associated infection cannot be excluded. The loculated component containing an air-fluid level in the medial aspect of the right pleural space anteriorly has increased in size. There is no central airway lesion identified. The left lung remains clear. Mediastinal and right hilar adenopathy are persistent. There is a small pericardial effusion which is unchanged. IMPRESSION: The caudal component of the loculated empyema has been diminished by the placement of a pleural catheter with slight improvement in right lower lobe and right middle lobe expansion. However, persistent loculated collections in the major fissure, right anterolateral pleural space, and right anteromedial pleural space remain undrained and the anteromedial lesion has increased in size and contains an air-fluid level. Lymphadenopathy is redemonstrated. Small pericardial effusion unchanged. Left lung remains clear. ACT 112: Negative or not required by law. Discharge Instructions Given to Patient (Per Discharging Provider) Please refer to accompanying hospital discharge summary for further details. Total Time Total Time Spent Total Time Spent (In Minutes): 60 minutes
[2024-03-18] MEDS: ADVANCED PROBIOTIC 625 MG CAPSULE PO SCH (17:18)
[2024-03-18] MEDS: BENZONATATE 100 MG CAPSULE PO PRN (18:27)
--- NOTE | 2024-03-18 20:06 | Communication Note ---
Date of Service: March 18, 2024 Notified by transfer center of unavailability of transport to take patient to [facility]. Discharge order canceled for now.
== END 2024-03-19 01:05 | disposition short-term general hospital (02) | DRG 871 ==
LOC: ED 01:15 → SUATTDRO 04:39 → 2S 04:39